=== PATIENT | male | born 1955 | race American Indian/Alaskan Native ===

== ENCOUNTER 2017-02-01 07:45 | Inpatient (IN) | payer OTHER ==
[2017-01-25 11:40] VITALS: BMI 36.5
--- NOTE | 2017-02-05 12:26 | CP.PCM.HP ---
History of Present Illness - History of Present Illness History of Present Illness: Orthopedic note Dr. Blackman 61M complains of left hip pain due to arthritis, failed conservative mgmt and elected for THR. PMH: HTN, DM, chol PSH: R TKR, R shoulder replacement NKDA lives with daughter in 3 family home with stairs Present on Admission - Present on Admission Any Indicators Present on Admission: No Review of Systems - Review of Systems All systems: reviewed and no additional remarkable complaints except - Constitutional Additional comments: no recent illness - Hematologic/Lymphatic Hematologic: absent: As Per HPI, Easy Bleeding, Easy Bruising, Lymphadenopathy, Other (no history of bleeding or blood clots) Past Patient History - Past Medical History & Family History Past Medical History?: Yes Past Family History: Reviewed and not pertinent - Past Social History Smoking Status: Former Smoker - CARDIAC Hx Cardiac Disorders: Yes Hx Hypercholesterolemia: Yes Hx Hypertension: Yes Hx Peripheral Edema: Yes - PULMONARY Hx Respiratory Disorders: No - NEUROLOGICAL Hx Neurological Disorder: No - HEENT Hx HEENT Problems: No - RENAL Hx Chronic Kidney Disease: No - ENDOCRINE/METABOLIC Hx Endocrine Disorders: Yes Hx Diabetes Mellitus Type 2: Yes - HEMATOLOGICAL/ONCOLOGICAL Hx Blood Disorders: No - INTEGUMENTARY Hx Dermatological Problems: No - MUSCULOSKELETAL/RHEUMATOLOGICAL Hx Musculoskeletal Disorders: Yes Hx Arthritis: Yes Hx Falls: No Hx Osteoarthritis: Yes - GASTROINTESTINAL Hx Gastrointestinal Disorders: No - GENITOURINARY/GYNECOLOGICAL Hx Genitourinary Disorders: No - PSYCHIATRIC Hx Psychophysiologic Disorder: No Hx Substance Use: No - SURGICAL HISTORY Hx Surgeries: Yes Hx Arthroscopy: Yes (ROTATOR CUFF REPAIR RIGHT SHOULDER ) Hx Joint Replacement: Yes (RIGHT SHOULDER) - ANESTHESIA Hx Anesthesia: Yes Hx Anesthesia Reactions: No Hx Malignant Hyperthermia: No Has any member of the family had a problem w/ anesthesia?: No Meds Allergies/Adverse Reactions: Allergies Allergy/AdvReac Type Severity Reaction Status Date / Time No Known Allergies Allergy Verified 09/06/15 10:28 Physical Exam - Constitutional Appears: Well, No Acute Distress - Expanded Lower Extremities Exam Left Knee exam: full ROM, normal inspection Ankle exam: FULL ROM, NORMAL INSPECTION Neuro vacular tendon exam: no vascular compromise - Neurological Exam Neurological exam: Alert, Oriented x3 - Psychiatric Exam Psychiatric exam: Normal Affect, Normal Mood - Skin Skin Exam: Dry, Intact, Normal Color, Warm Results - Vital Signs Recent Vital Signs: Last Vital Signs Temp 98.9 F 02/05/17 10:47 Pulse 84 02/05/17 10:47 Resp 18 02/05/17 10:47 BP 132/76 02/05/17 10:47 Pulse Ox 97 02/05/17 10:47 - Labs Labs: Laboratory Results - last 24 hr 02/05/17 02/05/17 10:55 11:32 POC Glucose (mg/dL) 182 H Blood Type A POSITIVE Antibody Screen Negative - Impressions Impression: ccession No. : [id number] Patient Name / ID : CESAR Abebe / [id number] Exam Date : 01/25/2017 12:15:44 ( Approved ) Study Comment : Sex / Age : M / 61Y Creator : Nicole Moreno MD Dictator : Nicole Moreno MD Record Producer : Knit Goods Washer : Nicole Moreno MD Approver2 : Report Date : 01/25/2017 13:06:15 My Comment : HISTORY: PREOP O.R . 02/01 COMPARISON: Chest x-ray performed 09/06/15 TECHNIQUE: Chest PA and lateral FINDINGS: Examination limited by habitus and hypoinflation. Lateral view obscured by patient's arm which was not elevated. LUNGS: No focal consolidation. Please note that chest x-ray has limited sensitivity for the detection of pulmonary masses. PLEURA: No significant pleural effusion identified. No definite pneumothorax . CARDIOVASCULAR: Heart size appears within normal limits. OSSEOUS STRUCTURES: Partially imaged right shoulder arthroplasty. VISUALIZED UPPER ABDOMEN: Unremarkable. OTHER FINDINGS: None. IMPRESSION: No focal consolidation, significant pleural effusion, or definite pneumothorax identified. Assessment & Plan (1) Unilateral primary osteoarthritis, left hip Assessment and Plan: NPO for OR Status: Acute (2) Hypertension Assessment and Plan: continue home meds med consult Status: Chronic (3) Diabetes type 2, controlled Status: Chronic (4) Hypercholesteremia Status: Chronic Decision To Admit - Pt Status Changed To: Hospital Disposition Of: Inpatient - Admit Certification Admit to Inpatient:: After my assessment, the patient will require hospitalization for at least two midnights. This is because of the severity of symptoms shown, intensity of services needed, and/or the medical risk in this patient being treated as an outpatient. - InPatient: Physician Admission Certification:: After my assessment, the patient will require hospitalization for at least two midnights. This is because of the severity of symptoms shown, intensity of services needed, and/or the medical risk in this patient being treated as an outpatient. - . Bed Request Type: Regular
[2017-02-05] MEDS ORDERED: Bacitracin 150,000 UNIT in Sodium Chloride 0.9% Irrig 3,000 ML IR SCH ×2 (12:30→12:45)
[2017-02-05] MEDS ORDERED: Morphine 1 mg/ml preservative-free Inj(Duramorph) ONE (13:03)
[2017-02-05] MEDS ORDERED: Propofol 10 mg/ml Inj (20 ML) ONE (13:11)
[2017-02-05] MEDS ORDERED: Midazolam 2 MG/2 ML VIAL ONE (13:11)
[2017-02-05] MEDS ORDERED: ceFAZolin 1 gm FROZEN Premix 1 GM/50 ML ML IVPB ONE ×2 (13:30→13:31)
[2017-02-05] MEDS ORDERED: Lactated Ringer's 1,000 ML IV ONE ×3 (13:40→17:30)
[2017-02-05] MEDS ORDERED: Absorbable Gelatin Sponge Size 100 ONE (17:17)
[2017-02-05] MEDS ORDERED: Thrombin Topical 20,000 Intl Units Spray Kit TOP ONE (17:17)
[2017-02-05] MEDS ORDERED: HYDROmorphone 0.5 mg/0.5 ml ISec IVP PRN (18:25)
[2017-02-05] MEDS ORDERED: Oxycodone/Acetaminophen 5/325 mg Tab PO PRN (18:30)
--- NOTE | 2017-02-05 18:40 | PCM.SURG1 ---
Surgeon's Initial Post Op Note - Surgeon's Notes Surgeon: Sigrid Blackman MD Manager Strategic: Juana Gay PA-C, CRNA Type of Anesthesia: Spinal Anesthesia Administered By: Pricila MACDONALD Pre-Operative Diagnosis: Left hip DJD Operative Findings: same Post-Operative Diagnosis: same Operation Performed: 1. Left total hip replacement, anterior. 2. femoral neck osteotomy. 3. release iliopsoas tendon. 4. autograft bone graft to acetabulum Specimen/Specimens Removed: femoral head Estimated Blood Loss: EBL {In ML}: 700 Blood Products Given: N/A Drains Used: No Drains Post-Op Condition: Fair Date of Surgery/Procedure: 02/05/17 Time of Surgery/Procedure: 18:43
[2017-02-05] MEDS ORDERED: Sodium Chloride 0.9% 1,000 ML IV ONE (19:00)
--- NOTE | 2017-02-05 20:09 | CP.PCM.CON ---
History of Present Illness - History of Present Illness History of Present Illness: 61 year old male with past medical history of hypertension, osteoarthritis, diabetes, hyperlipidemia presents status post left total hip replacement. Patient is still currently in the PACU and is still lethargic post surgery. He states his pain is currently a 7/10. He also complains that his mouth is dry. Patient denies shortness of breath or chest pain. Past Medical History: Hypertension, Diabetes, hyperlipidemia Past Surgical History: Right Total Knee Repair, Right shoulder replacement Allergies: NKDA Social: lives with daughter in 3 family home with stairs Additional history limited secondary to patient's status post left total hip replacement. Past Patient History - Past Medical History & Family History Past Medical History?: Yes Past Family History: Reviewed and not pertinent - Past Social History Smoking Status: Former Smoker - CARDIAC Hx Cardiac Disorders: Yes Hx Hypercholesterolemia: Yes Hx Hypertension: Yes Hx Peripheral Edema: Yes - PULMONARY Hx Respiratory Disorders: No - NEUROLOGICAL Hx Neurological Disorder: No - HEENT Hx HEENT Problems: No - RENAL Hx Chronic Kidney Disease: No - ENDOCRINE/METABOLIC Hx Endocrine Disorders: Yes Hx Diabetes Mellitus Type 2: Yes - HEMATOLOGICAL/ONCOLOGICAL Hx Blood Disorders: No - INTEGUMENTARY Hx Dermatological Problems: No - MUSCULOSKELETAL/RHEUMATOLOGICAL Hx Musculoskeletal Disorders: Yes Hx Arthritis: Yes Hx Falls: No Hx Osteoarthritis: Yes - GASTROINTESTINAL Hx Gastrointestinal Disorders: No - GENITOURINARY/GYNECOLOGICAL Hx Genitourinary Disorders: No - PSYCHIATRIC Hx Psychophysiologic Disorder: No Hx Substance Use: No - SURGICAL HISTORY Hx Surgeries: Yes Hx Arthroscopy: Yes (ROTATOR CUFF REPAIR RIGHT SHOULDER ) Hx Joint Replacement: Yes (RIGHT SHOULDER) - ANESTHESIA Hx Anesthesia: Yes Hx Anesthesia Reactions: No Hx Malignant Hyperthermia: No Has any member of the family had a problem w/ anesthesia?: No Meds Allergies/Adverse Reactions: Allergies Allergy/AdvReac Type Severity Reaction Status Date / Time No Known Allergies Allergy Verified 09/06/15 10:28 - Medications Medications: Current Medications Aspirin (Ecotrin) 81 mg PO Q12H [facility] Docusate Sodium (Colace) 100 mg PO BID [facility] Enalapril Maleate (Vasotec) 10 mg PO DAILY [facility] Hydromorphone HCl (Dilaudid) 0.5 mg IVP Q5M PRN PRN Reason: Pain, moderate (4-7) Stop: 02/05/17 20:26 Hydromorphone HCl (Dilaudid) 1 mg IVP Q4H PRN PRN Reason: Pain, severe (8-10) Cefazolin Sodium/Dextrose (Ancef Iv 2 Gm Duplex) 2 gm in 100 mls @ 100 mls/hr IVPB Q8H [facility] Stop: 02/06/17 06:59 Sodium Chloride (Sodium Chloride 0.9%) 1,000 mls @ 100 mls/hr IV .Q10H [facility] Stop: 02/06/17 14:29 Insulin Aspart (Novolog Mix 70/30 (70/30 Units/Ml)) 10 units SC TID [facility] Insulin Glargine (Lantus) 40 unit SC HS [facility] Metformin HCl (Glucophage) 850 mg PO BID [facility] Metoclopramide HCl (Reglan) 10 mg IVP ONCE PRN PRN Reason: Nausea/Vomiting Stop: 02/05/17 20:26 Metoprolol Succinate (Toprol Xl) 25 mg PO DAILY [facility] Ondansetron HCl (Zofran Inj) 4 mg IVP ONCE PRN PRN Reason: Nausea/Vomiting Stop: 02/05/17 20:26 Last Admin: 02/05/17 19:15 Dose: 4 mg Oxycodone/Acetaminophen (Percocet 5/325 Mg Tab) 2 tab PO Q4H PRN PRN Reason: Pain, moderate (4-7) Stop: 02/08/17 18:31 Rosuvastatin Calcium (Crestor) 5 mg PO HS [facility] Results - Vital Signs Recent Vital Signs: Last Vital Signs Temp 97.1 F L 02/05/17 18:19 Pulse 109 H 02/05/17 19:45 Resp 14 02/05/17 19:45 BP 148/80 02/05/17 19:45 Pulse Ox 100 02/05/17 19:45 - Labs Result Diagrams: 02/05/17 18:53 Labs: Laboratory Results - last 24 hr 02/05/17 02/05/17 02/05/17 10:55 11:32 18:53 Hgb 12.1 D Hct 37.0 POC Glucose (mg/dL) 182 H Blood Type A POSITIVE Antibody Screen Negative
--- NOTE | 2017-02-05 20:11 | CP.PCM.PN ---
<Dunia Rao - Last Filed: 02/05/17 22:43> Subjective - Date & Time of Evaluation Date of Evaluation: 02/05/17 Time of Evaluation: 20:11 - Subjective Subjective: 61 year old male with past medical history of hypertension, osteoarthritis, diabetes, hyperlipidemia presents status post left total hip replacement. Patient is still currently in the PACU and is still lethargic post surgery. He states his pain is currently a 7/10. He also complains that his mouth is dry. Patient denies shortness of breath or chest pain. Past Medical History: Hypertension, Diabetes, hyperlipidemia Past Surgical History: Right Total Knee Repair, Right shoulder replacement Allergies: NKDA Social: lives with daughter in 3 family home with stairs Additional history limited secondary to patient's status post left total hip replacement. Objective - Vital Signs/Intake and Output Vital Signs (last 24 hours): Temp Pulse Resp BP Pulse Ox 97.1 F L 109 H 14 148/80 100 02/05/17 18:19 02/05/17 19:45 02/05/17 19:45 02/05/17 19:45 02/05/17 19:45 Intake and Output: 02/05/17 02/06/17 18:59 06:59 Intake Total 100 Balance 100 - Medications Medications: Current Medications Aspirin (Ecotrin) 81 mg PO Q12H [facility] Docusate Sodium (Colace) 100 mg PO BID [facility] Enalapril Maleate (Vasotec) 10 mg PO DAILY [facility] Hydromorphone HCl (Dilaudid) 0.5 mg IVP Q5M PRN PRN Reason: Pain, moderate (4-7) Stop: 02/05/17 20:26 Hydromorphone HCl (Dilaudid) 1 mg IVP Q4H PRN PRN Reason: Pain, severe (8-10) Cefazolin Sodium/Dextrose (Ancef Iv 2 Gm Duplex) 2 gm in 100 mls @ 100 mls/hr IVPB Q8H [facility] Stop: 02/06/17 06:59 Sodium Chloride (Sodium Chloride 0.9%) 1,000 mls @ 100 mls/hr IV .Q10H [facility] Stop: 02/06/17 14:29 Insulin Aspart (Novolog Mix 70/30 (70/30 Units/Ml)) 10 units SC TID [facility] Insulin Glargine (Lantus) 40 unit SC HS [facility] Metformin HCl (Glucophage) 850 mg PO BID [facility] Metoclopramide HCl (Reglan) 10 mg IVP ONCE PRN PRN Reason: Nausea/Vomiting Stop: 02/05/17 20:26 Metoprolol Succinate (Toprol Xl) 25 mg PO DAILY [facility] Ondansetron HCl (Zofran Inj) 4 mg IVP ONCE PRN PRN Reason: Nausea/Vomiting Stop: 02/05/17 20:26 Last Admin: 02/05/17 19:15 Dose: 4 mg Oxycodone/Acetaminophen (Percocet 5/325 Mg Tab) 2 tab PO Q4H PRN PRN Reason: Pain, moderate (4-7) Stop: 02/08/17 18:31 Rosuvastatin Calcium (Crestor) 5 mg PO HS [facility] - Labs Labs: 02/05/17 18:53 - Constitutional Appears: No Acute Distress, Other (lethargic s/p surgery ) - Head Exam Head Exam: ATRAUMATIC, NORMAL INSPECTION, NORMOCEPHALIC - Eye Exam Eye Exam: EOMI, Normal appearance, PERRL - ENT Exam ENT Exam: Mucous Membranes Dry - Respiratory Exam Respiratory Exam: Clear to Ausculation Bilateral, NORMAL BREATHING PATTERN - Cardiovascular Exam Cardiovascular Exam: Tachycardia, REGULAR RHYTHM, +S1, +S2 - GI/Abdominal Exam GI & Abdominal Exam: Soft, Hypoactive Bowel Sounds. absent: Tenderness - Extremities Exam Extremities Exam: absent: Pedal Edema Additional comments: s/p right total hip repair - Neurological Exam Neurological Exam: Alert, Awake, Oriented x3 - Skin Skin Exam: Normal Color, Warm Assessment and Plan - Assessment and Plan (Free Text) Assessment: 1.) s/p Total hip replacement - Cefazolin - Dilaudid 1mg PRN - Percocet 2 tab q4 PRN - Colace 100mg PO BID - N/S @ 100 cc/hr - [place]: Dr. Horta --> help appreciated 2.)Sinus Tachycardic s/p surgery - n/s bolus 500ml - EKG - sinus taachy - Admitted to tele 3.) Acute Anemia - 700ml blood loss - H/H s/p surgery: 11.8/36.9 - Monitor H/H 4.) History of hypertension - Metoprolol succinate 25mg PO daily - Enalapril 10mg PO daily 5.) History Diabetes - Metformin 850mg PO BID - Insulin Glargine 40 unit SC HS 6.) History of Hyperlipidemia - Rosuvastatin 5mg PO HS Case discussed with Dr. Anaya Rao PGY-1 <Ryan Julien - Last Filed: 02/06/17 06:38> Subjective - Date & Time of Evaluation Date of Evaluation: 02/06/17 (I have seen and examined the patient. I agree with the findings and plan of care as documented by Dr. Rao. Patient s/p right hip replacement. History of diabetes and now with some sinus tachycardia. Patient had blood loss during surgery with a noticeable drop in hemoglobin. Hydrate with IVF. Monitor CBC. Monitor on tele. Maintain adequate blood sugar control to optimize healing and recovery. Monitor for acute changes.) Time of Evaluation: 06:35 Objective - Vital Signs/Intake and Output Vital Signs (last 24 hours): Temp Pulse Resp BP Pulse Ox 98.5 F 135 H 20 151/92 H 99 02/05/17 23:50 02/05/17 23:50 02/05/17 23:50 02/05/17 23:50 02/05/17 23:50 Intake and Output: 02/05/17 02/06/17 18:59 06:59 Intake Total 100 Output Total 100 Balance 100 -100 - Medications Medications: Current Medications Aspirin (Ecotrin) 81 mg PO Q12H [facility] Docusate Sodium (Colace) 100 mg PO BID [facility] Enalapril Maleate (Vasotec) 10 mg PO DAILY [facility] Hydromorphone HCl (Dilaudid) 1 mg IVP Q4H PRN PRN Reason: Pain, severe (8-10) Last Admin: 02/06/17 00:45 Dose: 1 mg Cefazolin Sodium/Dextrose (Ancef Iv 2 Gm Duplex) 2 gm in 100 mls @ 100 mls/hr IVPB Q8H [facility] Stop: 02/06/17 06:59 Last Admin: 02/05/17 22:13 Dose: 100 mls Sodium Chloride (Sodium Chloride 0.9%) 1,000 mls @ 100 mls/hr IV .Q10H [facility] Stop: 02/06/17 14:29 Last Admin: 02/05/17 22:47 Dose: 100 mls/hr Sodium Chloride (Sodium Chloride 0.9%) 500 mls @ 1,000 mls/hr IV .Q30M [facility] Stop: 02/06/17 06:56 Insulin Aspart (Novolog Mix 70/30 (70/30 Units/Ml)) 10 units SC TID [facility] Insulin Glargine (Lantus) 40 unit SC HS [facility] Metformin HCl (Glucophage) 850 mg PO BID [facility] Metoprolol Succinate (Toprol Xl) 25 mg PO DAILY [facility] Ondansetron HCl (Zofran Inj) 4 mg IVP Q6 PRN PRN Reason: Nausea Oxycodone/Acetaminophen (Percocet 5/325 Mg Tab) 2 tab PO Q4H PRN PRN Reason: Pain, moderate (4-7) Stop: 02/08/17 18:31 Rosuvastatin Calcium (Crestor) 5 mg PO HS [facility] Last Admin: 02/05/17 22:19 Dose: Not Given - Labs Labs: 02/05/17 21:20 Attending/Attestation - Attestation I have personally seen and examined this patient.: Yes I have fully participated in the care of the patient.: Yes I have reviewed all pertinent clinical information, including history, physical exam and plan: Yes
[2017-02-05] MEDS ORDERED: Sodium Chloride 0.9% 500 ML IV ONE (21:18)
[2017-02-05 21:30] LABS: HEMATOCRIT 36.9 % (35.0-51.0)
[2017-02-05] MEDS: ceFAZolin IV 2 gm in Dextrose 2 GM/100 ML BAG IVPB SCH (22:13)
[2017-02-05] MEDS: Sodium Chloride 0.9% 1,000 ML IV SCH (22:47)
[2017-02-06] MEDS: HYDROmorphone 1 mg/ml ISec IVP PRN ×3 (00:45→18:54)
[2017-02-06] MEDS ORDERED: Sodium Chloride 0.9% 500 ML IV ONE ×2 (01:56→06:27)
[2017-02-06] MEDS: ceFAZolin IV 2 gm in Dextrose 2 GM/100 ML BAG IVPB SCH (07:10)
[2017-02-06 07:23] LABS: HEMATOCRIT 33.9 % (35.0-51.0); MEAN CORPUSCULAR HEMOGLOBIN 27.2 pg (27.0-31.0); MEAN CORPUSCULAR HGB CONC 32.7 g/dL (33.0-37.0); MEAN PLATELET VOLUME 9.5 fL (7.2-11.7); RED CELL DISTRIBUTION WIDTH 14.9 % (11.5-14.5); WHITE BLOOD COUNT 13.3 K/uL (4.8-10.8)
[2017-02-06] MEDS: Sodium Chloride 0.9% 1,000 ML IV SCH (07:25)
[2017-02-06 08:01] LABS: MEAN CELL VOLUME 82.7 fL (80.0-94.0)
[2017-02-06 08:13] LABS: CHLORIDE 95 mmol/L (98-107)
[2017-02-06 08:14] LABS: POTASSIUM 5.2 mmol/L (3.6-5.2); SODIUM 131 mmol/L (132-148)
[2017-02-06 08:16] LABS: GFR AFRICAN-AMERICAN > 60
[2017-02-06 08:17] LABS: BLOOD UREA NITROGEN 15 mg/dL (9-20); CALCIUM 8.3 mg/dl (8.6-10.4); CARBON DIOXIDE 21 mmol/L (22-30); GLUCOSE,RANDOM 385 mg/dL (75-110); PHOSPHOROUS 4.9 mg/dL (2.5-4.5)
[2017-02-06 08:18] LABS: MAGNESIUM 1.5 mg/dL (1.6-2.3)
--- NOTE | 2017-02-06 09:16 | RAD ---
PROCEDURE: HISTORY: pt in PACU, s/p THR COMPARISON: None TECHNIQUE: AP view of the pelvis and slightly oblique left hip views obtained. Portable study FINDINGS: Patient status post total left hip panfilo arthroplasty. The acetabular and femoral stem components appear anatomically aligned. Left gluteal soft tissue postop changes and skin sutures are in place IMPRESSION: Status post recent left hip hemiarthroplasty
--- NOTE | 2017-02-06 09:42 | RAD ---
PROCEDURE: HISTORY: Status post total left hip replacement/ left hip panfilo arthroplasty COMPARISON: None TECHNIQUE: Total fluoroscopic time utilized during the procedure: 14.2 seconds. Total dose 3.53 mGy cm squared FINDINGS: Submitted images from the current procedure: 6 Please refer to the physician's notes performing the procedure. IMPRESSION: Less than 1 hour fluoroscopic time utilized during performance of the procedure
[2017-02-06] MEDS: (Novolog Mix 70/30) Insulin Aspart/Insulin Aspar 100 units/ml SC SCH ×3 (10:01→18:35)
--- NOTE | 2017-02-06 10:42 | CP.PCM.PN ---
<Maria G Parks - Last Filed: 02/06/17 13:07> Subjective - Date & Time of Evaluation Date of Evaluation: 02/06/17 Time of Evaluation: 07:00 - Subjective Subjective: Medicine note for Dr. Tripp Patient seen and examined at bedside. Patient resting comfortably in bed. Patient having SOB and pressure overnight per nursing. Patient still having pressure in his chest but says the SOB has improved. He says he feels congested in his chest but denies pain in his chest. Patient says he vomited last night but has otherwise been tolerating water and is wondering if he can have some jello. Patient says he is haveing 4/10 hip pain that is well controlled with pain meds. Patient says he feels like his right leg is swollen but denies calf pain. Patient has not had a BM since surgery and has not been out of bed. Patient says he is not using the incentive spirometer because no one gave him one. Denies fever, chills, diarrhea. Objective - Vital Signs/Intake and Output Vital Signs (last 24 hours): Temp Pulse Resp BP Pulse Ox 98.1 F 135 H 20 127/84 99 02/06/17 08:15 02/06/17 08:15 02/06/17 08:15 02/06/17 08:15 02/06/17 08:15 Intake and Output: 02/06/17 02/06/17 06:59 18:59 Output Total 100 Balance -100 - Medications Medications: Current Medications Aspirin (Ecotrin) 81 mg PO Q12H [facility] Docusate Sodium (Colace) 100 mg PO BID [facility] Enalapril Maleate (Vasotec) 10 mg PO DAILY [facility] Hydromorphone HCl (Dilaudid) 1 mg IVP Q4H PRN PRN Reason: Pain, severe (8-10) Last Admin: 02/06/17 00:45 Dose: 1 mg Sodium Chloride (Sodium Chloride 0.9%) 1,000 mls @ 100 mls/hr IV .Q10H [facility] Stop: 02/06/17 14:29 Last Admin: 02/06/17 07:25 Dose: 100 mls/hr Insulin Aspart (Novolog Mix 70/30 (70/30 Units/Ml)) 10 units SC TID [facility] Last Admin: 02/06/17 10:01 Dose: 10 units Insulin Glargine (Lantus) 40 unit SC HS [facility] Metformin HCl (Glucophage) 850 mg PO BID [facility] Metoprolol Succinate (Toprol Xl) 25 mg PO DAILY [facility] Ondansetron HCl (Zofran Inj) 4 mg IVP Q6 PRN PRN Reason: Nausea Last Admin: 02/06/17 08:13 Dose: 4 mg Oxycodone/Acetaminophen (Percocet 5/325 Mg Tab) 2 tab PO Q4H PRN PRN Reason: Pain, moderate (4-7) Stop: 02/08/17 18:31 Rosuvastatin Calcium (Crestor) 5 mg PO HS [facility] Last Admin: 02/05/17 22:19 Dose: Not Given - Labs Labs: 02/06/17 07:05 02/06/17 07:05 - Constitutional Appears: Non-toxic, No Acute Distress - Head Exam Head Exam: ATRAUMATIC, NORMAL INSPECTION - Eye Exam Eye Exam: EOMI, Normal appearance - ENT Exam ENT Exam: Mucous Membranes Moist - Respiratory Exam Respiratory Exam: Clear to Ausculation Bilateral, NORMAL BREATHING PATTERN. absent: Accessory Muscle Use, Rales, Rhonchi, Wheezes, Respiratory Distress - Cardiovascular Exam Cardiovascular Exam: Tachycardia, +S1, +S2. absent: Murmur - GI/Abdominal Exam GI & Abdominal Exam: Distended, Soft, Hypoactive Bowel Sounds. absent: Guarding , Tenderness - Extremities Exam Extremities Exam: absent: Calf Tenderness - Neurological Exam Neurological Exam: Alert, Awake - Psychiatric Exam Psychiatric exam: Normal Affect, Normal Mood - Skin Skin Exam: Dry, Intact, Normal Color, Warm. absent: Diaphoretic Assessment and Plan - Assessment and Plan (Free Text) Plan: s/p Total hip replacement POD#1 * Cefazolin * Dilaudid 1mg PRN * Percocet 2 tab q4 PRN * Colace 100mg PO BID * N/S @ 100 cc/hr * Encouraged incentive spirometer * [place]: Dr. Mychal yuan appreciated Chest Pain/Pressure * started POD#0/1 * f/u REINALDO and EKG * Consider D-dimer or CT chest with history of feeling swelling sensation of Right LE LE swelling * f/u venous dupplex b/l LEs Sinus Tachycardia * n/s bolus 500ml given 02/05 * EKG - sinus tachy * On Telemetry Acute Anemia * 700ml blood loss during surgery * H/H s/p surgery: 11.8/36.9 * POD#1 (02/06): 11.1/33.9 * Monitor H/H History of hypertension * Metoprolol succinate 25mg PO daily * Enalapril 10mg PO daily History Diabetes * Metformin 850mg PO BID * Insulin Glargine 40 unit SC HS History of Hyperlipidemia * Rosuvastatin 5mg PO HS Prophylaxis * c/i to SCDs - LE swelling * Heparin 5000 U SC Q8 * Pepcid 20 mg BID Case discussed with Dr. Josee Parks, PGY1 <Leti Tripp - Last Filed: 02/07/17 13:53> Objective - Vital Signs/Intake and Output Vital Signs (last 24 hours): Temp Pulse Resp BP Pulse Ox 99.9 F H 125 H 16 133/72 100 02/07/17 12:54 02/07/17 12:54 02/07/17 12:54 02/07/17 12:54 02/07/17 07:20 Intake and Output: 02/07/17 02/07/17 06:59 18:59 Intake Total 500 800 Output Total 300 700 Balance 200 100 - Medications Medications: Current Medications Aspirin (Ecotrin) 81 mg PO Q12H [facility] Last Admin: 02/07/17 10:17 Dose: 81 mg Docusate Sodium (Colace) 100 mg PO BID [facility] Last Admin: 02/07/17 10:17 Dose: 100 mg Enalapril Maleate (Vasotec) 10 mg PO DAILY [facility] Last Admin: 02/07/17 10:19 Dose: 10 mg Famotidine (Pepcid) 20 mg PO BID [facility] Last Admin: 02/07/17 10:17 Dose: 20 mg Heparin Sodium (Porcine) (Heparin) 5,000 units SC Q8 [facility] Last Admin: 02/07/17 05:50 Dose: 5,000 units Hydromorphone HCl (Dilaudid) 1 mg IVP Q4H PRN PRN Reason: Pain, severe (8-10) Last Admin: 02/07/17 10:17 Dose: 1 mg Insulin Aspart (Novolog Mix 70/30 (70/30 Units/Ml)) 10 units SC TID [facility] Last Admin: 02/07/17 10:18 Dose: 10 units Insulin Glargine (Lantus) [address] [facility] Last Admin: 02/06/17 22:00 Dose: Not Given Metformin HCl (Glucophage) 850 mg PO BID [facility] Last Admin: 02/07/17 10:17 Dose: 850 mg Metoprolol Succinate (Toprol Xl) 25 mg PO DAILY [facility] Last Admin: 02/07/17 10:17 Dose: 25 mg Ondansetron HCl (Zofran Inj) 4 mg IVP Q6 PRN PRN Reason: Nausea Last Admin: 02/06/17 08:13 Dose: 4 mg Oxycodone/Acetaminophen (Percocet 5/325 Mg Tab) 2 tab PO Q4H PRN PRN Reason: Pain, moderate (4-7) Stop: 02/08/17 18:31 Rosuvastatin Calcium (Crestor) 5 mg PO HS [facility] Last Admin: 02/06/17 21:38 Dose: 5 mg - Labs Labs: 02/07/17 07:06 02/07/17 07:06 APTT 28 SECONDS (21-34) 02/06/17 14:27 Attending/Attestation - Attestation I have personally seen and examined this patient.: Yes I have fully participated in the care of the patient.: Yes I have reviewed all pertinent clinical information, including history, physical exam and plan: Yes Notes (Text): 02/07/17 13:51 This is a 61years old male with history of DM,HTN,arthritis and HLD was seen after left hip replacement. Patient was seen and examined,no complain.He was tachycardic Monitor HR,hydrate, pain meds and continue his home meds Discussed with resident.Agree withe resident's documentation and plan
[2017-02-06] MEDS ORDERED: Pneumococcal 23-Valent Vaccine IM ONE (10:59)
[2017-02-06] MEDS: Metoprolol Succinate 25 mg XL Tab PO SCH (11:18)
--- NOTE | 2017-02-06 11:52 | CP.PCM.PN ---
Subjective - Date & Time of Evaluation Date of Evaluation: 02/06/17 Time of Evaluation: 11:00 - Subjective Subjective: Patient states that he has some pain in his hip, but that he is comfortable. He denies any CP/SOb/palp/diizziness/numbness/tingling at this time. He has been nauseated off and on, at this time he feels ok. Objective - Vital Signs/Intake and Output Vital Signs (last 24 hours): Temp Pulse Resp BP Pulse Ox 98.1 F 135 H 20 121/80 99 02/06/17 08:15 02/06/17 08:15 02/06/17 08:15 02/06/17 11:19 02/06/17 08:15 Intake and Output: 02/06/17 02/06/17 06:59 18:59 Output Total 100 Balance -100 - Medications Medications: Current Medications Aspirin (Ecotrin) 81 mg PO Q12H [facility] Docusate Sodium (Colace) 100 mg PO BID [facility] Last Admin: 02/06/17 11:19 Dose: 100 mg Enalapril Maleate (Vasotec) 10 mg PO DAILY [facility] Last Admin: 02/06/17 11:19 Dose: 10 mg Hydromorphone HCl (Dilaudid) 1 mg IVP Q4H PRN PRN Reason: Pain, severe (8-10) Last Admin: 02/06/17 11:19 Dose: 1 mg Sodium Chloride (Sodium Chloride 0.9%) 1,000 mls @ 100 mls/hr IV .Q10H [facility] Stop: 02/06/17 14:29 Last Admin: 02/06/17 07:25 Dose: 100 mls/hr Insulin Aspart (Novolog Mix 70/30 (70/30 Units/Ml)) 10 units SC TID [facility] Last Admin: 02/06/17 10:01 Dose: 10 units Insulin Glargine (Lantus) 40 unit SC HS [facility] Metformin HCl (Glucophage) 850 mg PO BID [facility] Metoprolol Succinate (Toprol Xl) 25 mg PO DAILY [facility] Last Admin: 02/06/17 11:18 Dose: 25 mg Ondansetron HCl (Zofran Inj) 4 mg IVP Q6 PRN PRN Reason: Nausea Last Admin: 02/06/17 08:13 Dose: 4 mg Oxycodone/Acetaminophen (Percocet 5/325 Mg Tab) 2 tab PO Q4H PRN PRN Reason: Pain, moderate (4-7) Stop: 02/08/17 18:31 Pneumococcal Polyvalent Vaccine (Pneumovax 23 Vaccine) 0.5 ml IM .ONCE ONE Stop: 02/07/17 11:00 Rosuvastatin Calcium (Crestor) 5 mg PO HS [facility] Last Admin: 02/05/17 22:19 Dose: Not Given - Labs Labs: 02/06/17 07:05 02/06/17 07:05 - Extremities Exam Additional comments: LLE: +ROM ankle/toes, sensation intact +DP/PT pulses calves soft left calf tender (could be due to positioning device) neg homans Left thigh swollen as expected, tender min drainage on dressing Assessment and Plan (1) Unilateral primary osteoarthritis, left hip Assessment & Plan: POD#1 s/p left THR patient with tachycardia post op patient did not receive beta block yet today as refused meds due to nausea, now agrees to take meds EKG noted cardiac enzymes noted, patient had THR expect CKMB to be elevated placed on telemetry pt with sig blood loss intraop and drop in hgb is expected, and may be contributing to tachycardia, along with pain (patient not taking much pain medication) cardiology consulted Dr. Saldaña d/c planning aspirin 81mg PO BID for VTE proph as per Dr. Blackman d/w Dr. Blackman, agrees with above venous dopplers ordered, neg for DVT bilaterally Status: Acute (2) Acute blood loss anemia Assessment & Plan: monitor labs in am BP stable, tachycardic,f/u labs and consult Status: Acute (3) Hypertension Status: Chronic (4) Diabetes type 2, controlled Status: Chronic (5) Hypercholesteremia Status: Chronic
[2017-02-06] MEDS: (Lantus) Insulin Glargine, Recombinant SC SCH (22:00)
[2017-02-07] MEDS: HYDROmorphone 1 mg/ml ISec IVP PRN ×3 (01:05→20:33)
[2017-02-07] MEDS ORDERED: Sodium Chloride 0.9% 1,000 ML IV SCH (01:45)
[2017-02-07 07:18] LABS: HEMATOCRIT 24.3 % (35.0-51.0); MEAN CELL VOLUME 81.7 fL (80.0-94.0); MEAN CORPUSCULAR HEMOGLOBIN 27.2 pg (27.0-31.0); MEAN CORPUSCULAR HGB CONC 33.3 g/dL (33.0-37.0); RED CELL DISTRIBUTION WIDTH 14.8 % (11.5-14.5); WHITE BLOOD COUNT 11.4 K/uL (4.8-10.8)
[2017-02-07 08:10] LABS: CHLORIDE 93 mmol/L (98-107); SODIUM 128 mmol/L (132-148)
[2017-02-07 08:11] LABS: POTASSIUM 3.6 mmol/L (3.6-5.2)
[2017-02-07 08:13] LABS: BLOOD UREA NITROGEN 12 mg/dL (9-20); CARBON DIOXIDE 28 mmol/L (22-30); GFR AFRICAN-AMERICAN > 60
[2017-02-07 08:14] LABS: CALCIUM 8.2 mg/dl (8.6-10.4); GLUCOSE,RANDOM 188 mg/dL (75-110)
[2017-02-07] MEDS: Metoprolol Succinate 25 mg XL Tab PO SCH (10:17)
[2017-02-07] MEDS: (Novolog Mix 70/30) Insulin Aspart/Insulin Aspar 100 units/ml SC SCH ×3 (10:18→18:00)
[2017-02-07] MEDS ORDERED: Influenza Vaccine 60 mcg/0.5 mL SYR (4YR UP) IM ONE (10:59)
[2017-02-07] MEDS ORDERED: Pneumococcal 23-Valent Vaccine IM ONE (10:59)
--- NOTE | 2017-02-07 11:14 | CP.PCM.PN ---
<Maria G Parks - Last Filed: 02/07/17 13:53> Subjective - Date & Time of Evaluation Date of Evaluation: 02/07/17 Time of Evaluation: 11:10 - Subjective Subjective: Medicine note for Dr. Tripp Patient seen and examined at bedside. Pateint resting comfortably in bed with no new complaints at this time. Patient says he is having hip pain and palpitations but otherwise is doing much better today than he felt yesterday. Patient is passing flatus but has not had a BM since surgery. He is tolerating his diet, however, he feels nauseous when he takes his PO meds. Patient denies fever, chills, chest pain, SOB, vomiting, calf pain, and leg swelling. Objective - Vital Signs/Intake and Output Vital Signs (last 24 hours): Temp Pulse Resp BP Pulse Ox 98.5 F 115 H 20 120/85 100 02/07/17 07:20 02/07/17 07:20 02/07/17 07:20 02/07/17 10:19 02/07/17 07:20 Intake and Output: 02/07/17 02/07/17 06:59 18:59 Intake Total 500 800 Output Total 300 700 Balance 200 100 - Medications Medications: Current Medications Aspirin (Ecotrin) 81 mg PO Q12H [facility] Last Admin: 02/07/17 10:17 Dose: 81 mg Docusate Sodium (Colace) 100 mg PO BID [facility] Last Admin: 02/07/17 10:17 Dose: 100 mg Enalapril Maleate (Vasotec) 10 mg PO DAILY [facility] Last Admin: 02/07/17 10:19 Dose: 10 mg Famotidine (Pepcid) 20 mg PO BID [facility] Last Admin: 02/07/17 10:17 Dose: 20 mg Heparin Sodium (Porcine) (Heparin) 5,000 units SC Q8 [facility] Last Admin: 02/07/17 05:50 Dose: 5,000 units Hydromorphone HCl (Dilaudid) 1 mg IVP Q4H PRN PRN Reason: Pain, severe (8-10) Last Admin: 02/07/17 10:17 Dose: 1 mg Insulin Aspart (Novolog Mix 70/30 (70/30 Units/Ml)) 10 units SC TID [facility] Last Admin: 02/07/17 10:18 Dose: 10 units Insulin Glargine (Lantus) 40 unit SC [facility] Last Admin: 02/06/17 22:00 Dose: Not Given Metformin HCl (Glucophage) 850 mg PO BID [facility] Last Admin: 02/07/17 10:17 Dose: 850 mg Metoprolol Succinate (Toprol Xl) 25 mg PO DAILY [facility] Last Admin: 02/07/17 10:17 Dose: 25 mg Ondansetron HCl (Zofran Inj) 4 mg IVP Q6 PRN PRN Reason: Nausea Last Admin: 02/06/17 08:13 Dose: 4 mg Oxycodone/Acetaminophen (Percocet 5/325 Mg Tab) 2 tab PO Q4H PRN PRN Reason: Pain, moderate (4-7) Stop: 02/08/17 18:31 Rosuvastatin Calcium (Crestor) 5 mg PO [facility] Last Admin: 02/06/17 21:38 Dose: 5 mg - Labs Labs: 02/07/17 07:06 02/07/17 07:06 APTT 28 SECONDS (21-34) 02/06/17 14:27 - Constitutional Appears: Non-toxic, No Acute Distress - Head Exam Head Exam: NORMAL INSPECTION - Eye Exam Eye Exam: EOMI, Normal appearance - ENT Exam ENT Exam: Mucous Membranes Moist - Respiratory Exam Respiratory Exam: Clear to Ausculation Bilateral, NORMAL BREATHING PATTERN. absent: Accessory Muscle Use, Rales, Rhonchi, Wheezes, Respiratory Distress - Cardiovascular Exam Cardiovascular Exam: Tachycardia, +S1, +S2. absent: Murmur - GI/Abdominal Exam GI & Abdominal Exam: Distended, Soft, Hypoactive Bowel Sounds. absent: Guarding , Tenderness - Extremities Exam Extremities Exam: Normal Inspection. absent: Calf Tenderness, Pedal Edema Additional comments: bandage over incision of left hip c/d/i - Neurological Exam Neurological Exam: Alert, Awake - Psychiatric Exam Psychiatric exam: Normal Affect, Normal Mood - Skin Skin Exam: Dry, Intact, Normal Color, Warm Assessment and Plan - Assessment and Plan (Free Text) Plan: s/p Total hip replacement POD#1 * Cefazolin * Dilaudid 1mg PRN * Percocet 2 tab q4 PRN * Colace 100mg PO BID * N/S @ 100 cc/hr * Encouraged incentive spirometer * Gray: Dr. Bioardo - recs appreciated Chest Pain/Pressure * started POD#0/1 * REINALDO and EKG negative x3 LE swelling * venous dupplex b/l LEs negative Sinus Tachycardia * n/s bolus 500ml given 02/05 * EKG - sinus tachy * On Telemetry Acute Anemia * 700ml blood loss during surgery * H/H s/p surgery: 11.8/36.9 * POD#1 (02/06): 11.1/33.9 * POD#2 (02/07): 8.1/24.3 - transfused 1 U PRBCs, f/u H&H * Monitor H/H * Blood type: A+ * Antibody screen: negative History of hypertension * Metoprolol succinate 25mg PO daily * Enalapril 10mg PO daily History Diabetes * Metformin 850mg PO BID * Insulin Glargine 40 unit SC HS * Insulin Aspart 10 U SC TID * Monitor blood glucose ACHS and consider increasing insulin if uncontrolled History of Hyperlipidemia * Rosuvastatin 5mg PO HS Prophylaxis * c/i to SCDs - LE swelling * Heparin 5000 U SC Q8 * Pepcid 20 mg BID Case discussed with Dr. Josee Parks, PGY1 <Leti Tripp - Last Filed: 02/08/17 17:21> Objective - Vital Signs/Intake and Output Vital Signs (last 24 hours): Temp Pulse Resp BP Pulse Ox 99.9 F H 125 H 16 133/72 100 02/07/17 12:54 02/07/17 12:54 02/07/17 12:54 02/07/17 12:54 02/07/17 07:20 Intake and Output: 02/07/17 02/07/17 06:59 18:59 Intake Total 500 800 Output Total 300 700 Balance 200 100 - Medications Medications: Current Medications Aspirin (Ecotrin) 81 mg PO Q12H [facility] Last Admin: 02/07/17 10:17 Dose: 81 mg Docusate Sodium (Colace) 100 mg PO BID [facility] Last Admin: 02/07/17 10:17 Dose: 100 mg Enalapril Maleate (Vasotec) 10 mg PO DAILY [facility] Last Admin: 02/07/17 10:19 Dose: 10 mg Famotidine (Pepcid) 20 mg PO BID [facility] Last Admin: 02/07/17 10:17 Dose: 20 mg Heparin Sodium (Porcine) (Heparin) 5,000 units SC Q8 [facility] Last Admin: 02/07/17 05:50 Dose: 5,000 units Hydromorphone HCl (Dilaudid) 1 mg IVP Q4H PRN PRN Reason: Pain, severe (8-10) Last Admin: 02/07/17 10:17 Dose: 1 mg Insulin Aspart (Novolog Mix 70/30 (70/30 Units/Ml)) 10 units SC TID [facility] Last Admin: 02/07/17 10:18 Dose: 10 units Insulin Glargine (Lantus) 40 unit SC HS [facility] Last Admin: 02/06/17 22:00 Dose: Not Given Metformin HCl (Glucophage) 850 mg PO BID [facility] Last Admin: 02/07/17 10:17 Dose: 850 mg Metoprolol Succinate (Toprol Xl) 25 mg PO DAILY [facility] Last Admin: 02/07/17 10:17 Dose: 25 mg Ondansetron HCl (Zofran Inj) 4 mg IVP Q6 PRN PRN Reason: Nausea Last Admin: 02/06/17 08:13 Dose: 4 mg Oxycodone/Acetaminophen (Percocet 5/325 Mg Tab) 2 tab PO Q4H PRN PRN Reason: Pain, moderate (4-7) Stop: 02/08/17 18:31 Rosuvastatin Calcium (Crestor) 5 mg PO [facility] Last Admin: 02/06/17 21:38 Dose: 5 mg - Labs Labs: 02/07/17 07:06 02/07/17 07:06 APTT 28 SECONDS (21-34) 02/06/17 14:27 Attending/Attestation - Attestation I have personally seen and examined this patient.: Yes I have fully participated in the care of the patient.: Yes I have reviewed all pertinent clinical information, including history, physical exam and plan: Yes Notes (Text): This is a 61 years old male with history of DM,HTMN,arthritis and HLD s/p Left hip replacement seen and examined this morning.He is tachycardic.c/o weakness,no SOB,no chest pain.His Hb dropped from 11 to 8.1 1.Left hip replacement 2.Anemia and tachycardia post surgery blood loss.Transfuse one unit 3.Hyponatremia-follow sodium 4.DM 5.HTN continue current meds Discussed with the resident. Agree with the documentation of assessment and plan
--- NOTE | 2017-02-07 13:12 | CP.PCM.PN ---
Subjective - Date & Time of Evaluation Date of Evaluation: 02/07/17 Time of Evaluation: 13:06 - Subjective Subjective: Patient states pain in his hip is getting better. He was out of bed before and he wants to sit on edge of bed for lunch. Denies CP/SOB/dizziness. Still come sputum, but he says it is improving. Objective - Vital Signs/Intake and Output Vital Signs (last 24 hours): Temp Pulse Resp BP Pulse Ox 99.4 F 134 H 16 143/82 100 02/07/17 12:24 02/07/17 12:24 02/07/17 12:24 02/07/17 12:24 02/07/17 07:20 Intake and Output: 02/07/17 02/07/17 06:59 18:59 Intake Total 500 800 Output Total 300 700 Balance 200 100 - Medications Medications: Current Medications Aspirin (Ecotrin) 81 mg PO Q12H [facility] Last Admin: 02/07/17 10:17 Dose: 81 mg Docusate Sodium (Colace) 100 mg PO BID [facility] Last Admin: 02/07/17 10:17 Dose: 100 mg Enalapril Maleate (Vasotec) 10 mg PO DAILY [facility] Last Admin: 02/07/17 10:19 Dose: 10 mg Famotidine (Pepcid) 20 mg PO BID [facility] Last Admin: 02/07/17 10:17 Dose: 20 mg Heparin Sodium (Porcine) (Heparin) 5,000 units SC Q8 [facility] Last Admin: 02/07/17 05:50 Dose: 5,000 units Hydromorphone HCl (Dilaudid) 1 mg IVP Q4H PRN PRN Reason: Pain, severe (8-10) Last Admin: 02/07/17 10:17 Dose: 1 mg Insulin Aspart (Novolog Mix 70/30 (70/30 Units/Ml)) 10 units SC TID [facility] Last Admin: 02/07/17 10:18 Dose: 10 units Insulin Glargine (Lantus) 40 unit SC HS [facility] Last Admin: 02/06/17 22:00 Dose: Not Given Metformin HCl (Glucophage) 850 mg PO BID [facility] Last Admin: 02/07/17 10:17 Dose: 850 mg Metoprolol Succinate (Toprol Xl) 25 mg PO DAILY [facility] Last Admin: 02/07/17 10:17 Dose: 25 mg Ondansetron HCl (Zofran Inj) 4 mg IVP Q6 PRN PRN Reason: Nausea Last Admin: 02/06/17 08:13 Dose: 4 mg Oxycodone/Acetaminophen (Percocet 5/325 Mg Tab) 2 tab PO Q4H PRN PRN Reason: Pain, moderate (4-7) Stop: 02/08/17 18:31 Rosuvastatin Calcium (Crestor) 5 mg PO HS [facility] Last Admin: 02/06/17 21:38 Dose: 5 mg - Labs Labs: 02/07/17 07:06 02/07/17 07:06 APTT 28 SECONDS (21-34) 02/06/17 14:27 - Extremities Exam Additional comments: Left hip: +ROM akle/toes, sensation intact +DP/PT pulses, calves soft min tender neg homans, Left thigh swollen, does not appear more swollen than yesterday, less tender today Assessment and Plan (1) Unilateral primary osteoarthritis, left hip Assessment & Plan: POD#2 s/p left THR anterior -patient's tachycardia improving, however hgb dropping, ?hemodilutional no clinical suspicion of active bleeding in thigh will f/u labs, blood loss post op should be leveling off at this point post op -PT/oT -d/c planning -VTE proph with aspirin as per Dr. Blackman -d/w Dr. Blackman, agrees with above Status: Acute (2) Acute blood loss anemia Assessment & Plan: s/p 1uPRBC today monitor tachycardia repeat h/h Status: Acute (3) Hypertension Status: Chronic (4) Diabetes type 2, controlled Status: Chronic (5) Hypercholesteremia Status: Chronic
--- NOTE | 2017-02-07 14:58 | VASCLAB ---
PROCEDURE: Lower Extremity Venous Duplex Exam. HISTORY: swelling r/o DVT PRIORS: None. TECHNIQUE: Bilateral common femoral, femoral, popliteal and posterior tibial, peroneal and great saphenous veins were evaluated. Flow was assessed with color Doppler, compressibility, assessment of phasic flow and augmentation response. Report prepared by Drake Cook, MARCELINO, RVT FINDINGS: RIGHT: 1. Common Femoral Vein: 1.1. Compressibility - Fully compressible: Thrombus - None : Flow - Phasic: Augmentation -Normal: Reflux - None. 2. Femoral Vein: 2.1. Compressibility - Fully compressible: Thrombus - None : Flow - Phasic: Augmentation -Normal: Reflux - None. 3. Popliteal Vein: 3.1. Compressibility - Fully compressible: Thrombus - None : Flow - Phasic: Augmentation -Normal: Reflux - None. 4. Posterior Tibial Vein: 4.1. Compressibility - Fully compressible: Thrombus - None: Flow - Phasic: Augmentation -Normal: Reflux - None. 5. Peroneal Vein: 5.1. Compressibility - Fully compressible: Thrombus - None: Flow - Phasic: Augmentation -Normal: Reflux - None. 6. Great Saphenous Vein: 6.1. Compressibility - Fully compressible: Thrombus - None: Flow - Phasic: Augmentation - Normal: Reflux - None. LEFT: 1. Common Femoral Vein: 1.1. Compressibility - Fully compressible: Thrombus - None: Flow - Phasic: Augmentation -Normal: Reflux - None. 2. Femoral Vein: 2.1. Compressibility - Fully compressible: Thrombus - None: Flow - Phasic: Augmentation -Normal: Reflux - None. 3. Popliteal Vein: 3.1. Compressibility - Fully compressible: Thrombus - None : Flow - Phasic: Augmentation -Normal: Reflux - None. 4. Posterior Tibial Vein: 4.1. Compressibility - Fully compressible: Thrombus - None: Flow - Phasic: Augmentation -Normal: Reflux - None. 5. Peroneal Vein: 5.1. Compressibility - Fully compressible: Thrombus - None: Flow - Phasic: Augmentation -Normal: Reflux - None. 6. Great Saphenous Vein: 6.1. Compressibility - Fully compressible: Thrombus - None: Flow - Phasic: Augmentation - Normal: Reflux - None. OTHER FINDINGS: Right: None significant. Left: None significant. IMPRESSION: Right: No evidence of deep or superficial vein thrombosis of the right lower extremity. Normal valve function noted of the right side. Left: No evidence of deep or superficial vein thrombosis of the left lower extremity. Normal valve function noted of the left side.
[2017-02-07 16:01] VITALS: RESP 20
--- NOTE | 2017-02-07 19:58 | CP.PCM.PN ---
Subjective - Date & Time of Evaluation Date of Evaluation: 02/07/17 Time of Evaluation: 19:54 - Subjective Subjective: Code Star: 61 year old male s/p left total hip replacement secondary to osteoarthritis falls after trying to get out of chair to bed on his own. Patient states he was tired of sitting in the chair and wanted to get up. He was lifted from the ground to the bed by a back board with 4 people for assistance. Patient stated his pain was a 10/10 currently. His vitals: B/P 147/74; HR 123; Temp 98; 93% RA. Objective - Vital Signs/Intake and Output Vital Signs (last 24 hours): Temp Pulse Resp BP Pulse Ox 98.9 F 126 H 20 159/74 H 95 02/07/17 15:57 02/07/17 16:09 02/07/17 15:57 02/07/17 15:57 02/07/17 15:57 Intake and Output: 02/07/17 02/08/17 18:59 06:59 Intake Total 800 Output Total 700 Balance 100 - Medications Medications: Current Medications Aspirin (Ecotrin) 81 mg PO Q12H [facility] Last Admin: 02/07/17 10:17 Dose: 81 mg Docusate Sodium (Colace) 100 mg PO BID [facility] Last Admin: 02/07/17 10:17 Dose: 100 mg Enalapril Maleate (Vasotec) 10 mg PO DAILY [facility] Last Admin: 02/07/17 10:19 Dose: 10 mg Famotidine (Pepcid) 20 mg PO BID [facility] Last Admin: 02/07/17 10:17 Dose: 20 mg Heparin Sodium (Porcine) (Heparin) 5,000 units SC Q8 [facility] Last Admin: 02/07/17 15:00 Dose: 5,000 units Hydromorphone HCl (Dilaudid) 1 mg IVP Q4H PRN PRN Reason: Pain, severe (8-10) Last Admin: 02/07/17 10:17 Dose: 1 mg Insulin Aspart (Novolog Mix 70/30 (70/30 Units/Ml)) 10 units SC TID [facility] Last Admin: 02/07/17 15:01 Dose: 10 units Insulin Glargine (Lantus) 40 unit SC HS [facility] Last Admin: 02/06/17 22:00 Dose: Not Given Metformin HCl (Glucophage) 850 mg PO BID [facility] Last Admin: 02/07/17 10:17 Dose: 850 mg Metoprolol Succinate (Toprol Xl) 25 mg PO DAILY [facility] Last Admin: 02/07/17 10:17 Dose: 25 mg Ondansetron HCl (Zofran Inj) 4 mg IVP Q6 PRN PRN Reason: Nausea Last Admin: 02/06/17 08:13 Dose: 4 mg Oxycodone/Acetaminophen (Percocet 5/325 Mg Tab) 2 tab PO Q4H PRN PRN Reason: Pain, moderate (4-7) Stop: 02/08/17 18:31 Rosuvastatin Calcium (Crestor) 5 mg PO HS [facility] Last Admin: 02/06/17 21:38 Dose: 5 mg - Labs Labs: 02/07/17 07:06 02/07/17 07:06 APTT 28 SECONDS (21-34) 02/06/17 14:27 - Constitutional Appears: In Acute Distress - Head Exam Head Exam: ATRAUMATIC, NORMAL INSPECTION, NORMOCEPHALIC - Eye Exam Eye Exam: EOMI, Normal appearance - ENT Exam ENT Exam: Mucous Membranes Moist - Respiratory Exam Respiratory Exam: Clear to Ausculation Bilateral, NORMAL BREATHING PATTERN - Cardiovascular Exam Cardiovascular Exam: Tachycardia, +S1, +S2 - GI/Abdominal Exam GI & Abdominal Exam: Soft, Normal Bowel Sounds. absent: Tenderness - Extremities Exam Extremities Exam: Tenderness Additional comments: Left lower leg was slightly internally rotated. - Neurological Exam Neurological Exam: Alert, Awake, Oriented x3 Assessment and Plan - Assessment and Plan (Free Text) Assessment: s/p fall - f/u xray of bilateral hip - notified Brittaney Stock and she is aware of the fall.
[2017-02-07 20:39] LABS: BASO % 0.3 % (0.0-2.0); EOS % 0.1 % (0.0-4.0); HEMATOCRIT 25.5 % (35.0-51.0); LYMPH # 1.2 K/uL (1.0-4.3); LYMPH % 9.7 % (20.0-40.0); MEAN CORPUSCULAR HEMOGLOBIN 27.3 pg (27.0-31.0); MEAN CORPUSCULAR HGB CONC 33.7 g/dL (33.0-37.0); MEAN PLATELET VOLUME 9.1 fL (7.2-11.7); MONO % 7.9 % (0.0-10.0); PLATELET COUNT 177 K/uL (130-400); RED CELL DISTRIBUTION WIDTH 14.7 % (11.5-14.5); WHITE BLOOD COUNT 12.9 K/uL (4.8-10.8)
[2017-02-07 21:01] LABS: EOSINOPHIL 1 % (0-4); NEUTROPHIL 80 % (50-75); TOTAL CELLS COUNTED 100
[2017-02-07 21:02] LABS: LARGE PLATELETS PRESENT
--- NOTE | 2017-02-07 23:38 | CARD ---
APPROVED REPORT EKG Measurement Heart [id number] LA [id number] <Conclusion> Sinus tachycardia T wave abnormality, consider lateral ischemia Abnormal ECG
--- NOTE | 2017-02-07 23:46 | CARD ---
APPROVED REPORT EKG Measurement Heart [id number] MN [id number] [id number] <Conclusion> Sinus tachycardia Cannot rule out Inferior infarct, age undetermined Cannot rule out Anterior infarct, age undetermined T wave abnormality, consider lateral ischemia Abnormal ECG
--- NOTE | 2017-02-07 23:49 | CARD ---
APPROVED REPORT EKG Measurement Heart [id number] LA [id number] [id number] <Conclusion> Sinus tachycardia Cannot rule out Anterior infarct, age undetermined T wave abnormality, consider lateral ischemia Abnormal ECG
[2017-02-08] MEDS: (Lantus) Insulin Glargine, Recombinant SC SCH ×2 (00:07→22:14)
[2017-02-08 07:49] LABS: BASO % 0.2 % (0.0-2.0); EOS % 0.1 % (0.0-4.0); HEMATOCRIT 25.4 % (35.0-51.0); LYMPH # 1.3 K/uL (1.0-4.3); LYMPH % 11.9 % (20.0-40.0); MEAN CELL VOLUME 80.8 fL (80.0-94.0); MEAN CORPUSCULAR HGB CONC 34.7 g/dL (33.0-37.0); MEAN PLATELET VOLUME 9.2 fL (7.2-11.7); MONO % 8.6 % (0.0-10.0); RED CELL DISTRIBUTION WIDTH 14.8 % (11.5-14.5); WHITE BLOOD COUNT 11.1 K/uL (4.8-10.8)
[2017-02-08 08:12] LABS: CHLORIDE 92 mmol/L (98-107)
[2017-02-08 08:13] LABS: POTASSIUM 3.5 mmol/L (3.6-5.2); SODIUM 130 mmol/L (132-148)
[2017-02-08 08:15] LABS: CARBON DIOXIDE 29 mmol/L (22-30); GFR AFRICAN-AMERICAN > 60
[2017-02-08 08:16] LABS: ALB/GLOB RATIO 1.3 (1.0-2.1); ALKALINE PHOSPHATASE 59 U/L (38-126); ALT/SGPT 27 U/L (21-72); AST/SGOT 38 U/L (17-59); BILIRUBIN,TOTAL 0.7 mg/dL (0.2-1.3); BLOOD UREA NITROGEN 10 mg/dL (9-20); GLUCOSE,RANDOM 147 mg/dL (75-110); TOTAL PROTEIN 5.9 g/dL (6.3-8.3)
[2017-02-08 08:17] LABS: CALCIUM 8.1 mg/dl (8.6-10.4); MAGNESIUM 2.1 mg/dL (1.6-2.3)
--- NOTE | 2017-02-08 08:40 | RAD ---
PROCEDURE: HISTORY: s/p fall COMPARISON: 02/05/2017 TECHNIQUE: AP view of the pelvis and applicable frog leg views obtained. FINDINGS: status post left hip panfilo arthroplasty. The acetabular and femoral stem components appear anatomically aligned. Left gluteal soft tissue postop changes and skin sutures are in place Lumbosacral level transitional elements suggested IMPRESSION: Status post left hip hemiarthroplasty. No hardware failure apparent
[2017-02-08] MEDS ORDERED: Potassium Chloride 20 mEq ER Tab PO ONE (08:58)
--- NOTE | 2017-02-08 09:03 | CP.PCM.PN ---
<Maria G Parks - Last Filed: 02/08/17 16:31> Subjective - Date & Time of Evaluation Date of Evaluation: 02/08/17 Time of Evaluation: 09:00 - Subjective Subjective: Medicine Note for Dr. Tripp Patient seen and examined at bedside. Patient resting comfortably in bed with no new complaints at this time. Patient is having some post op pain that he says is well controlled on the pain medication. Patient has not had a BM yet but is passing flatus. Patient admits to feeling fatigued and says he is hungry. Patient fell last night and does not have any new pain from the fall. He denies CP, SOB, F&C, AP, N&V, diarrhea, palpitations, calf pain, and swelling. Objective - Vital Signs/Intake and Output Vital Signs (last 24 hours): Temp Pulse Resp BP Pulse Ox 99.1 F 116 H 20 158/81 H 96 02/08/17 08:08 02/08/17 08:08 02/08/17 08:08 02/08/17 08:08 02/08/17 08:08 Intake and Output: 02/08/17 02/08/17 06:59 18:59 Intake Total 200 Balance 200 - Medications Medications: Current Medications Aspirin (Ecotrin) 81 mg PO Q12H [facility] Last Admin: 02/08/17 00:05 Dose: 81 mg Docusate Sodium (Colace) 100 mg PO BID [facility] Last Admin: 02/07/17 23:15 Dose: 100 mg Enalapril Maleate (Vasotec) 10 mg PO DAILY [facility] Last Admin: 02/07/17 10:19 Dose: 10 mg Famotidine (Pepcid) 20 mg PO BID [facility] Last Admin: 02/07/17 23:17 Dose: 20 mg Heparin Sodium (Porcine) (Heparin) 5,000 units SC Q8 [facility] Last Admin: 02/08/17 06:36 Dose: 5,000 units Hydromorphone HCl (Dilaudid) 1 mg IVP Q4H PRN PRN Reason: Pain, severe (8-10) Last Admin: 02/07/17 20:33 Dose: 1 mg Insulin Aspart (Novolog Mix 70/30 (70/30 Units/Ml)) 10 units SC TID [facility] Last Admin: 02/07/17 18:00 Dose: Not Given Insulin Glargine (Lantus) 40 unit SC [facility] Last Admin: 02/08/17 00:07 Dose: 40 u Metformin HCl (Glucophage) 850 mg PO BID [facility] Last Admin: 02/07/17 18:00 Dose: Not Given Metoprolol Succinate (Toprol Xl) 25 mg PO DAILY [facility] Last Admin: 02/07/17 10:17 Dose: 25 mg Ondansetron HCl (Zofran Inj) 4 mg IVP Q6 PRN PRN Reason: Nausea Last Admin: 02/06/17 08:13 Dose: 4 mg Oxycodone/Acetaminophen (Percocet 5/325 Mg Tab) 2 tab PO Q4H PRN PRN Reason: Pain, moderate (4-7) Stop: 02/08/17 18:31 Potassium Chloride (K-Dur 20 Meq Er Tab) 20 meq PO ONCE ONE Stop: 02/08/17 08:59 Rosuvastatin Calcium (Crestor) 5 mg PO [facility] Last Admin: 02/07/17 23:15 Dose: 5 mg - Labs Labs: 02/08/17 07:16 02/08/17 07:16 APTT 28 SECONDS (21-34) 02/06/17 14:27 - Additional Findings Additional findings: - Constitutional Appears: Non-toxic, No Acute Distress - Head Exam Head Exam: NORMAL INSPECTION - Eye Exam Eye Exam: EOMI, Normal appearance - ENT Exam ENT Exam: Mucous Membranes Moist - Respiratory Exam Respiratory Exam: Clear to Ausculation Bilateral, NORMAL BREATHING PATTERN. absent: Accessory Muscle Use, Rales, Rhonchi, Wheezes, Respiratory Distress - Cardiovascular Exam Cardiovascular Exam: Tachycardia, +S1, +S2, Murmur (JOANNE). - GI/Abdominal Exam GI & Abdominal Exam: Distended, Soft, Normal Bowel Sounds. absent: Guarding, Tenderness - Extremities Exam Extremities Exam: Normal Inspection. absent: Calf Tenderness, Pedal Edema Additional comments: bandage over incision of left hip c/d/i - Neurological Exam Neurological Exam: Alert, Awake - Psychiatric Exam Psychiatric exam: Normal Affect, Normal Mood - Skin Skin Exam: Dry, Intact, Normal Color, Warm Assessment and Plan - Assessment and Plan (Free Text) Plan: s/p Total hip replacement POD#3 * Cefazolin * Dilaudid 1mg PRN * Percocet 2 tab q4 PRN * Colace 100mg PO BID * N/S @ 100 cc/hr * Encouraged incentive spirometer * [place]: Dr. Horta - lissy appreciated * Hip X ray s/p fall (02/07): no acute changes, no hardware failure. Chest Pain/Pressure - resolved * started POD#0/1 * REINALDO and EKG negative x3 * Chest CT 02/08: There is suboptimal opacification of the pulmonary arteries limiting evaluation for pulmonary embolus. Given this limitation, there are no visible intraluminal filling defects within the central pulmonary arteries to suggest central pulmonary embolism. Right lower lobe infiltrates/atelectasis. Mild left basilar atelectasis. LE swelling - resolved * venous dupplex b/l LEs negative Sinus Tachycardia * n/s bolus 500ml given 02/05 * EKG - sinus tachy * On Telemetry * Possibly 2/2 anemia Acute Anemia * 700ml blood loss during surgery * H/H s/p surgery: 11.8/36.9 * POD#1 (02/06): 11.1/33.9 * POD#2 (02/07): 8.1/24.3 - transfused 1 U PRBCs, H&H 8.6/25.5 * POD#3 (02/08): 8.8/25.4 * Monitor H/H * Blood type: A+ * Antibody screen: negative Leukocytosis * continue to monitor CBCs History of hypertension * Metoprolol succinate 25mg PO daily * Enalapril 10mg PO daily History Diabetes * Metformin 850mg PO BID * Insulin Glargine 40 unit SC HS * Insulin Aspart 10 U SC TID * Monitor blood glucose ACHS and consider increasing insulin if uncontrolled History of Hyperlipidemia * Rosuvastatin 5mg PO HS Prophylaxis * c/i to SCDs - LE swelling * Heparin 5000 U SC Q8 * Pepcid 20 mg BID Disposition: Patient ready to be discharged to [facility] - awaiting authorization Case discussed with Dr. Josee Parks, PGY1 <Leti Tripp - Last Filed: 02/08/17 17:29> Objective - Vital Signs/Intake and Output Vital Signs (last 24 hours): Temp Pulse Resp BP Pulse Ox 99.1 F 117 H 20 138/76 96 02/08/17 15:20 02/08/17 15:45 02/08/17 15:20 02/08/17 15:20 02/08/17 15:45 Intake and Output: 02/08/17 02/08/17 06:59 18:59 Intake Total 200 480 Output Total 400 Balance 200 80 - Medications Medications: Current Medications Aspirin (Ecotrin) 81 mg PO Q12H [facility] Last Admin: 02/08/17 09:30 Dose: 81 mg Docusate Sodium (Colace) 100 mg PO BID [facility] Last Admin: 02/08/17 09:19 Dose: 100 mg Enalapril Maleate (Vasotec) 10 mg PO DAILY [facility] Last Admin: 02/08/17 09:18 Dose: 10 mg Famotidine (Pepcid) 20 mg PO BID [facility] Last Admin: 02/08/17 09:19 Dose: 20 mg Guaifenesin (Robitussin) 200 mg PO Q4H PRN PRN Reason: Cough and congestion Heparin Sodium (Porcine) (Heparin) 5,000 units SC Q8 [facility] Last Admin: 02/08/17 13:11 Dose: 5,000 units Hydromorphone HCl (Dilaudid) 1 mg IVP Q4H PRN PRN Reason: Pain, severe (8-10) Last Admin: 02/08/17 13:30 Dose: 1 mg Insulin Aspart (Novolog Mix 70/30 (70/30 Units/Ml)) 10 units SC TID [facility] Last Admin: 02/08/17 13:11 Dose: 10 units Insulin Glargine (Lantus) 40 unit SC [facility] Last Admin: 02/08/17 00:07 Dose: 40 u Metformin HCl (Glucophage) 850 mg PO BID [facility] Last Admin: 02/08/17 09:18 Dose: 850 mg Metoprolol Succinate (Toprol Xl) 25 mg PO DAILY [facility] Last Admin: 02/08/17 09:28 Dose: 25 mg Ondansetron HCl (Zofran Inj) 4 mg IVP Q6 PRN PRN Reason: Nausea Last Admin: 02/06/17 08:13 Dose: 4 mg Oxycodone/Acetaminophen (Percocet 5/325 Mg Tab) 2 tab PO Q4H PRN PRN Reason: Pain, moderate (4-7) Stop: 02/08/17 18:31 Rosuvastatin Calcium (Crestor) 5 mg PO [facility] Last Admin: 02/07/17 23:15 Dose: 5 mg - Labs Labs: 02/08/17 07:16 02/08/17 07:16 APTT 28 SECONDS (21-34) 02/06/17 14:27 Attending/Attestation - Attestation I have personally seen and examined this patient.: Yes I have fully participated in the care of the patient.: Yes I have reviewed all pertinent clinical information, including history, physical exam and plan: Yes Notes (Text): This is a 61 years old male with history of DM,HTMN,arthritis and HLD s/p Left hip replacement seen and examined this morning.He is tachycardia is improving ,CT chest done , no PE,s/p Blood transfusion.Todays hemoglobin is 8.8. Feels better. 1.Left hip replacement 2.Anemia and tachycardia post surgery blood loss. one unit of PRBC given tachycardia is improving.CT chest negative for PE 3.Hyponatremia-follow sodium 4.DM 5.HTN continue current meds Discussed with the resident. Agree with the documentation of assessment and plan
[2017-02-08] MEDS: (Novolog Mix 70/30) Insulin Aspart/Insulin Aspar 100 units/ml SC SCH ×3 (09:19→18:59)
[2017-02-08] MEDS: HYDROmorphone 1 mg/ml ISec IVP PRN ×3 (09:19→20:20)
[2017-02-08] MEDS: Metoprolol Succinate 25 mg XL Tab PO SCH (09:28)
[2017-02-08] MEDS ORDERED: Iodixanol 320 MG/ML 100 ML BOTTLE IV ONE (10:47)
--- NOTE | 2017-02-08 11:54 | CT ---
CTA chest PE protocol Indication: tachycardia post op THR Technique: Contiguous axial images were obtained through the chest with intravenous contrast enhancement. Sagittal and coronal reconstructions were generated and reviewed. This CT exam was performed using 1 or more of the falling dose reduction techniques: Automated exposure control, adjustment of the MAA and/or kV according to patient size, and/or use of iterative reconstruction technique. IV Contrast: 100 mL Visipaque Radiation dose (DLP): 521.28 MGy-cm. Comparison: Chest x-ray performed 01/25/17 Findings: Visualized portions of the inferior thyroid gland appear unremarkable. The mediastinal and hilar vascular structures appear within normal limits. The heart appears within normal limits of size. There is suboptimal opacification of the pulmonary arteries limiting evaluation for pulmonary embolus. Given this limitation, there are no visible intraluminal filling defects within the central pulmonary arteries to suggest central pulmonary embolism. Right lower lobe infiltrates/atelectasis. Mild left basilar atelectasis. No pleural effusion. No pneumothorax. Limited visualized portions of the upper abdomen demonstrates 13 mm probable splenule inferior to the spleen. Partially imaged right shoulder arthroplasty with resultant streak artifact. Degenerative changes of the spine. Mild scoliosis. Impression: There is suboptimal opacification of the pulmonary arteries limiting evaluation for pulmonary embolus. Given this limitation, there are no visible intraluminal filling defects within the central pulmonary arteries to suggest central pulmonary embolism. Right lower lobe infiltrates/atelectasis. Mild left basilar atelectasis.
[2017-02-08] MEDS ORDERED: guaiFENesin 200 mg/10 ml Syrup UD PO PRN (14:13)
--- NOTE | 2017-02-08 16:55 | CP.PCM.PN ---
<Brittaney Webb - Last Filed: 02/08/17 16:52> Subjective - Date & Time of Evaluation Date of Evaluation: 02/08/17 Time of Evaluation: 16:52 - Subjective Subjective: Patient feeling better. Pain controlled. Events noted. Imaging post fall reviewed with Dr. Blakcman. No actue fracture or dislocation appreciated. Objective - Vital Signs/Intake and Output Vital Signs (last 24 hours): Temp Pulse Resp BP Pulse Ox 99.1 F 117 H 20 150/80 96 02/08/17 08:08 02/08/17 15:45 02/08/17 08:08 02/08/17 09:18 02/08/17 15:45 Intake and Output: 02/08/17 02/08/17 06:59 18:59 Intake Total 200 480 Output Total 400 Balance 200 80 - Medications Medications: Current Medications Aspirin (Ecotrin) 81 mg PO Q12H [facility] Last Admin: 02/08/17 09:30 Dose: 81 mg Docusate Sodium (Colace) 100 mg PO BID [facility] Last Admin: 02/08/17 09:19 Dose: 100 mg Enalapril Maleate (Vasotec) 10 mg PO DAILY [facility] Last Admin: 02/08/17 09:18 Dose: 10 mg Famotidine (Pepcid) 20 mg PO BID [facility] Last Admin: 02/08/17 09:19 Dose: 20 mg Guaifenesin (Robitussin) 200 mg PO Q4H PRN PRN Reason: Cough and congestion Heparin Sodium (Porcine) (Heparin) 5,000 units SC Q8 [facility] Last Admin: 02/08/17 13:11 Dose: 5,000 units Hydromorphone HCl (Dilaudid) 1 mg IVP Q4H PRN PRN Reason: Pain, severe (8-10) Last Admin: 02/08/17 13:30 Dose: 1 mg Insulin Aspart (Novolog Mix 70/30 (70/30 Units/Ml)) 10 units SC TID [facility] Last Admin: 02/08/17 13:11 Dose: 10 units Insulin Glargine (Lantus) 40 unit SC HS [facility] Last Admin: 02/08/17 00:07 Dose: 40 u Metformin HCl (Glucophage) 850 mg PO BID [facility] Last Admin: 02/08/17 09:18 Dose: 850 mg Metoprolol Succinate (Toprol Xl) 25 mg PO DAILY [facility] Last Admin: 02/08/17 09:28 Dose: 25 mg Ondansetron HCl (Zofran Inj) 4 mg IVP Q6 PRN PRN Reason: Nausea Last Admin: 02/06/17 08:13 Dose: 4 mg Oxycodone/Acetaminophen (Percocet 5/325 Mg Tab) 2 tab PO Q4H PRN PRN Reason: Pain, moderate (4-7) Stop: 02/08/17 18:31 Rosuvastatin Calcium (Crestor) 5 mg PO HS [facility] Last Admin: 02/07/17 23:15 Dose: 5 mg - Labs Labs: 02/08/17 07:16 02/08/17 07:16 APTT 28 SECONDS (21-34) 02/06/17 14:27 - Extremities Exam Additional comments: left thigh: ? slightly more swollen today. Ice applied. Dressing changed. incision intact, no active drainage, no erythema. +ROM ankle/toes, sensation intact, +Dp/PT pulses calves soft NT neg homans Assessment and Plan (1) Unilateral primary osteoarthritis, left hip Assessment & Plan: POD#3 s/p left THR s/p 1uPRBC tachycardia better this afternoon CT angio per Dr blackman was of poor quality, but no central PE noted some atelectasis noted, IS encouraged, encourage OOB d/c planning to rehab labs in am if continues to be stable, will plan for discharge d/w Dr. Blackman, agrees with above Status: Acute (2) Acute blood loss anemia Status: Acute (3) Hypertension Status: Chronic (4) Diabetes type 2, controlled Status: Chronic (5) Hypercholesteremia Status: Chronic <Leti Tripp - Last Filed: 02/08/17 17:19> Objective - Vital Signs/Intake and Output Vital Signs (last 24 hours): Temp Pulse Resp BP Pulse Ox 99.1 F 117 H 20 138/76 96 02/08/17 15:20 02/08/17 15:45 02/08/17 15:20 02/08/17 15:20 02/08/17 15:45 Intake and Output: 02/08/17 02/08/17 06:59 18:59 Intake Total 200 480 Output Total 400 Balance 200 80 - Medications Medications: Current Medications Aspirin (Ecotrin) 81 mg PO Q12H [facility] Last Admin: 02/08/17 09:30 Dose: 81 mg Docusate Sodium (Colace) 100 mg PO BID [facility] Last Admin: 02/08/17 09:19 Dose: 100 mg Enalapril Maleate (Vasotec) 10 mg PO DAILY [facility] Last Admin: 02/08/17 09:18 Dose: 10 mg Famotidine (Pepcid) 20 mg PO BID [facility] Last Admin: 02/08/17 09:19 Dose: 20 mg Guaifenesin (Robitussin) 200 mg PO Q4H PRN PRN Reason: Cough and congestion Heparin Sodium (Porcine) (Heparin) 5,000 units SC Q8 [facility] Last Admin: 02/08/17 13:11 Dose: 5,000 units Hydromorphone HCl (Dilaudid) 1 mg IVP Q4H PRN PRN Reason: Pain, severe (8-10) Last Admin: 02/08/17 13:30 Dose: 1 mg Insulin Aspart (Novolog Mix 70/30 (70/30 Units/Ml)) 10 units SC TID [facility] Last Admin: 02/08/17 13:11 Dose: 10 units Insulin Glargine (Lantus) 40 unit SC [facility] Last Admin: 02/08/17 00:07 Dose: 40 u Metformin HCl (Glucophage) 850 mg PO BID [facility] Last Admin: 02/08/17 09:18 Dose: 850 mg Metoprolol Succinate (Toprol Xl) 25 mg PO DAILY [facility] Last Admin: 02/08/17 09:28 Dose: 25 mg Ondansetron HCl (Zofran Inj) 4 mg IVP Q6 PRN PRN Reason: Nausea Last Admin: 02/06/17 08:13 Dose: 4 mg Oxycodone/Acetaminophen (Percocet 5/325 Mg Tab) 2 tab PO Q4H PRN PRN Reason: Pain, moderate (4-7) Stop: 02/08/17 18:31 Rosuvastatin Calcium (Crestor) 5 mg PO HS [facility] Last Admin: 02/07/17 23:15 Dose: 5 mg - Labs Labs: 02/08/17 07:16 02/08/17 07:16 APTT 28 SECONDS (21-34) 02/06/17 14:27
[2017-02-08] MEDS ORDERED: Bisacodyl 5mg EC Tab PO ONE (17:15)
[2017-02-09] MEDS: HYDROmorphone 1 mg/ml ISec IVP PRN ×3 (01:20→16:20)
[2017-02-09 07:58] LABS: BASO % 0.3 % (0.0-2.0); EOS # 0.1 K/uL (0.0-0.7); EOS % 1.1 % (0.0-4.0); LYMPH # 1.3 K/uL (1.0-4.3); LYMPH % 14.4 % (20.0-40.0); MEAN CELL VOLUME 81.1 fL (80.0-94.0); MEAN CORPUSCULAR HEMOGLOBIN 27.9 pg (27.0-31.0); MEAN CORPUSCULAR HGB CONC 34.5 g/dL (33.0-37.0); MEAN PLATELET VOLUME 8.8 fL (7.2-11.7); MONO # 0.9 K/uL (0.0-0.8); MONO % 9.9 % (0.0-10.0); RED CELL DISTRIBUTION WIDTH 14.7 % (11.5-14.5)
[2017-02-09 08:40] LABS: CHLORIDE 90 mmol/L (98-107); POTASSIUM 3.5 mmol/L (3.6-5.2); SODIUM 128 mmol/L (132-148)
[2017-02-09 08:42] LABS: ALB/GLOB RATIO 1.3 (1.0-2.1); ALKALINE PHOSPHATASE 73 U/L (38-126); ALT/SGPT 26 U/L (21-72); AST/SGOT 29 U/L (17-59); BILIRUBIN,TOTAL 0.9 mg/dL (0.2-1.3); BLOOD UREA NITROGEN 11 mg/dL (9-20); CARBON DIOXIDE 28 mmol/L (22-30); GFR AFRICAN-AMERICAN > 60; GLUCOSE,RANDOM 177 mg/dL (75-110)
[2017-02-09 08:43] LABS: MAGNESIUM 2.1 mg/dL (1.6-2.3); PHOSPHOROUS 2.9 mg/dL (2.5-4.5)
[2017-02-09] MEDS: Metoprolol Succinate 25 mg XL Tab PO SCH (09:30)
[2017-02-09] MEDS: (Novolog Mix 70/30) Insulin Aspart/Insulin Aspar 100 units/ml SC SCH ×3 (09:31→18:10)
--- NOTE | 2017-02-09 10:49 | CP.PCM.PN ---
Subjective - Date & Time of Evaluation Date of Evaluation: 02/09/17 Time of Evaluation: 10:47 - Subjective Subjective: Patient complaining of thigh pain during PT. Denies CP/SOB/dizziness. Objective - Vital Signs/Intake and Output Vital Signs (last 24 hours): Temp Pulse Resp BP Pulse Ox 98.7 F 112 H 20 132/61 99 02/09/17 08:40 02/09/17 08:40 02/09/17 08:40 02/09/17 09:31 02/09/17 08:40 Intake and Output: 02/09/17 02/09/17 06:59 18:59 Intake Total 20 Output Total 600 Balance -580 - Medications Medications: Current Medications Aspirin (Ecotrin) 81 mg PO Q12H [facility] Last Admin: 02/09/17 09:30 Dose: 81 mg Docusate Sodium (Colace) 100 mg PO BID [facility] Last Admin: 02/09/17 09:29 Dose: 100 mg Enalapril Maleate (Vasotec) 10 mg PO DAILY [facility] Last Admin: 02/09/17 09:31 Dose: 10 mg Famotidine (Pepcid) 20 mg PO BID [facility] Last Admin: 02/09/17 09:30 Dose: 20 mg Guaifenesin (Robitussin) 200 mg PO Q4H PRN PRN Reason: Cough and congestion Heparin Sodium (Porcine) (Heparin) 5,000 units SC Q8 [facility] Last Admin: 02/09/17 05:20 Dose: 5,000 units Hydromorphone HCl (Dilaudid) 1 mg IVP Q4H PRN PRN Reason: Pain, severe (8-10) Last Admin: 02/09/17 10:18 Dose: 1 mg Insulin Aspart (Novolog Mix 70/30 (70/30 Units/Ml)) 10 units SC TID [facility] Last Admin: 02/09/17 09:31 Dose: 10 units Insulin Glargine (Lantus) 40 unit SC HS [facility] Last Admin: 02/08/17 22:14 Dose: 40 u Metformin HCl (Glucophage) 850 mg PO BID [facility] Last Admin: 02/09/17 10:32 Dose: 850 mg Metoprolol Succinate (Toprol Xl) 25 mg PO DAILY [facility] Last Admin: 02/09/17 09:30 Dose: 25 mg Ondansetron HCl (Zofran Inj) 4 mg IVP Q6 PRN PRN Reason: Nausea Last Admin: 02/06/17 08:13 Dose: 4 mg Rosuvastatin Calcium (Crestor) 5 mg PO HS [facility] Last Admin: 02/08/17 22:12 Dose: 5 mg - Labs Labs: 02/09/17 07:47 02/09/17 07:47 APTT 28 SECONDS (21-34) 02/06/17 14:27 - Extremities Exam Additional comments: Left thigh swollen. No change in size, still moderately swollen, h/h stable, ice applied +ROM ankle/toes, sensation intact, +DP/PT pulses calves soft NT neg homans Assessment and Plan (1) Unilateral primary osteoarthritis, left hip Assessment & Plan: POD#4 s/p left THR -ortho stable for d/c to rehab -h/h stable, tachycardia improving -dressing change left thigh daily -ice to left thigh -VTE proph with aspirin 81mg PO BID per Dr. Blackman -f/u approx 10 days, call for appointment [phone] -d/w Dr. Blackman, agrees with above Status: Acute (2) Acute blood loss anemia Status: Acute (3) Hypertension Status: Chronic (4) Diabetes type 2, controlled Status: Chronic (5) Hypercholesteremia Status: Chronic
--- NOTE | 2017-02-09 14:27 | CP.PCM.PN ---
<Maria G Parks - Last Filed: 02/09/17 14:37> Subjective - Date & Time of Evaluation Date of Evaluation: 02/09/17 Time of Evaluation: 14:21 - Subjective Subjective: Medicine note for Dr. Tripp Patient seen and examined at bedside. Patient resting comfortably in bed with no new complaints at this time. Patient is having some mild left hip pain that is well controlled. He is having some nausea but no vomiting. Patient has not had a BM yet but says he feels like he has to. He is passing flatus. Patient is tolerating his diet. He denies CP, SOB, F&C, AP, Vomiting, diarrhea, palpitations, calf pain, and swelling. Objective - Vital Signs/Intake and Output Vital Signs (last 24 hours): Temp Pulse Resp BP Pulse Ox 98.7 F 112 H 20 132/61 99 02/09/17 08:40 02/09/17 08:40 02/09/17 08:40 02/09/17 09:31 02/09/17 08:40 Intake and Output: 02/09/17 02/09/17 06:59 18:59 Intake Total 20 Output Total 600 Balance -580 - Medications Medications: Current Medications Aspirin (Ecotrin) 81 mg PO Q12H [facility] Last Admin: 02/09/17 09:30 Dose: 81 mg Docusate Sodium (Colace) 100 mg PO BID [facility] Last Admin: 02/09/17 09:29 Dose: 100 mg Enalapril Maleate (Vasotec) 10 mg PO DAILY [facility] Last Admin: 02/09/17 09:31 Dose: 10 mg Famotidine (Pepcid) 20 mg PO BID [facility] Last Admin: 02/09/17 09:30 Dose: 20 mg Guaifenesin (Robitussin) 200 mg PO Q4H PRN PRN Reason: Cough and congestion Hydromorphone HCl (Dilaudid) 1 mg IVP Q4H PRN PRN Reason: Pain, severe (8-10) Last Admin: 02/09/17 10:18 Dose: 1 mg Insulin Aspart (Novolog Mix 70/30 (70/30 Units/Ml)) 10 units SC TID [facility] Last Admin: 02/09/17 13:36 Dose: 10 units Insulin Glargine (Lantus) 40 unit SC HS [facility] Last Admin: 02/08/17 22:14 Dose: 40 u Metformin HCl (Glucophage) 850 mg PO BID [facility] Last Admin: 02/09/17 10:32 Dose: 850 mg Metoprolol Succinate (Toprol Xl) 25 mg PO DAILY [facility] Last Admin: 02/09/17 09:30 Dose: 25 mg Ondansetron HCl (Zofran Inj) 4 mg IVP Q6 PRN PRN Reason: Nausea Last Admin: 02/06/17 08:13 Dose: 4 mg Rosuvastatin Calcium (Crestor) 5 mg PO HS [facility] Last Admin: 02/08/17 22:12 Dose: 5 mg - Labs Labs: 02/09/17 07:47 02/09/17 07:47 APTT 28 SECONDS (21-34) 02/06/17 14:27 - Additional Findings Additional findings: - Constitutional Appears: Non-toxic, No Acute Distress - Head Exam Head Exam: NORMAL INSPECTION - Eye Exam Eye Exam: EOMI, Normal appearance - ENT Exam ENT Exam: Mucous Membranes Moist - Respiratory Exam Respiratory Exam: Clear to Ausculation Bilateral, NORMAL BREATHING PATTERN. absent: Accessory Muscle Use, Rales, Rhonchi, Wheezes, Respiratory Distress - Cardiovascular Exam Cardiovascular Exam: Tachycardia, +S1, +S2, Murmur (JOANNE). - GI/Abdominal Exam GI & Abdominal Exam: Distended, Soft, Normal Bowel Sounds. absent: Guarding, Tenderness - Extremities Exam Extremities Exam: Normal Inspection. absent: Calf Tenderness, Pedal Edema Additional comments: bandage over incision of left hip c/d/i - Neurological Exam Neurological Exam: Alert, Awake - Psychiatric Exam Psychiatric exam: Normal Affect, Normal Mood - Skin Skin Exam: Dry, Intact, Normal Color, Warm Assessment and Plan - Assessment and Plan (Free Text) Plan: s/p Total hip replacement POD#3 * Cefazolin * Dilaudid 1mg PRN * Percocet 2 tab q4 PRN * Colace 100mg PO BID * N/S @ 100 cc/hr * Encouraged incentive spirometer * [place]: Dr. Mychal yuan appreciated * Hip X ray s/p fall (02/07): no acute changes, no hardware failure. Chest Pain/Pressure - resolved * started POD#0/1 * REINALDO and EKG negative x3 * Chest CT 02/08: There is suboptimal opacification of the pulmonary arteries limiting evaluation for pulmonary embolus. Given this limitation, there are no visible intraluminal filling defects within the central pulmonary arteries to suggest central pulmonary embolism. Right lower lobe infiltrates/atelectasis. Mild left basilar atelectasis. LE swelling - resolved * venous dupplex b/l LEs negative Sinus Tachycardia * n/s bolus 500ml given 02/05 * EKG - sinus tachy * On Telemetry * Possibly 2/2 anemia Acute Anemia * 700ml blood loss during surgery * H/H s/p surgery: 11.8/36.9 * POD#1 (02/06): 11.1/33.9 * POD#2 (02/07): 8.1/24.3 - transfused 1 U PRBCs, H&H 8.6/25.5 * POD#3 (02/08): 8.8/25.4 * Monitor H/H * Blood type: A+ * Antibody screen: negative Leukocytosis * continue to monitor CBCs History of hypertension * Metoprolol succinate 25mg PO daily * Enalapril 10mg PO daily History Diabetes * Metformin 850mg PO BID * Insulin Glargine 40 unit SC HS * Insulin Aspart 10 U SC TID * Monitor blood glucose ACHS and consider increasing insulin if uncontrolled History of Hyperlipidemia * Rosuvastatin 5mg PO HS Prophylaxis * c/i to SCDs - LE swelling * Heparin 5000 U SC Q8 * Pepcid 20 mg BID Disposition: Patient ready to be discharged pending [facility] authorization Case discussed with Dr. Josee Parks, PGY1 <Leti Tripp - Last Filed: 02/09/17 17:31> Objective - Vital Signs/Intake and Output Vital Signs (last 24 hours): Temp Pulse Resp BP Pulse Ox 98.7 F 112 H 20 132/61 99 02/09/17 08:40 02/09/17 08:40 02/09/17 08:40 02/09/17 09:31 02/09/17 08:40 Intake and Output: 02/09/17 02/09/17 06:59 18:59 Intake Total 20 Output Total 600 Balance -580 - Medications Medications: Current Medications Aspirin (Ecotrin) 81 mg PO Q12H [facility] Last Admin: 02/09/17 09:30 Dose: 81 mg Docusate Sodium (Colace) 100 mg PO BID [facility] Last Admin: 02/09/17 09:29 Dose: 100 mg Enalapril Maleate (Vasotec) 10 mg PO DAILY [facility] Last Admin: 02/09/17 09:31 Dose: 10 mg Famotidine (Pepcid) 20 mg PO BID [facility] Last Admin: 02/09/17 09:30 Dose: 20 mg Guaifenesin (Robitussin) 200 mg PO Q4H PRN PRN Reason: Cough and congestion Hydromorphone HCl (Dilaudid) 1 mg IVP Q4H PRN PRN Reason: Pain, severe (8-10) Last Admin: 02/09/17 16:20 Dose: 1 mg Insulin Aspart (Novolog Mix 70/30 (70/30 Units/Ml)) 10 units SC TID [facility] Last Admin: 02/09/17 13:36 Dose: 10 units Insulin Glargine (Lantus) 40 unit SC HS [facility] Last Admin: 02/08/17 22:14 Dose: 40 u Metformin HCl (Glucophage) 850 mg PO BID [facility] Last Admin: 02/09/17 10:32 Dose: 850 mg Metoprolol Succinate (Toprol Xl) 25 mg PO DAILY [facility] Last Admin: 02/09/17 09:30 Dose: 25 mg Ondansetron HCl (Zofran Inj) 4 mg IVP Q6 PRN PRN Reason: Nausea Last Admin: 02/06/17 08:13 Dose: 4 mg Rosuvastatin Calcium (Crestor) 5 mg PO HS [facility] Last Admin: 02/08/17 22:12 Dose: 5 mg - Labs Labs: 02/09/17 07:47 02/09/17 07:47 APTT 28 SECONDS (21-34) 02/06/17 14:27 Attending/Attestation - Attestation I have personally seen and examined this patient.: Yes I have fully participated in the care of the patient.: Yes I have reviewed all pertinent clinical information, including history, physical exam and plan: Yes Notes (Text): This is a 61 years old male with history of DM,HTMN,arthritis and HLD s/p Left hip replacement seen and examined this morning.He is tachycardia is improving ,CT chest done , no PE,s/p Blood transfusion.Hemoglobin is better Seen and examined.No complain. 1.Left hip replacement-D/C to rehab when ready 2.Anemia and tachycardia post surgery blood loss. one unit of PRBC given,Doing good tachycardia is improving.CT chest negative for PE 3.Hyponatremia-follow sodium 4.DM 5.HTN continue current meds Discussed with the resident. Agree with the documentation of assessment and plan 02/09/17 17:28
--- NOTE | 2017-02-09 16:24 | CP.PCM.DIS ---
Provider - Provider Date of Admission: 02/05/17 10:14 Attending physician: Ryan Julien MD Primary care physician: Dr. Marc Consults: Dr. Blackman Time Spent in preparation of Discharge (in minutes): 35 Diagnosis - Discharge Diagnosis (1) Acute blood loss anemia Status: Acute (2) Unilateral primary osteoarthritis, left hip Status: Acute (3) Prophylactic measure Status: Acute (4) Diabetes type 2, controlled Status: Chronic (5) Hypercholesteremia Status: Chronic (6) Hypertension Status: Chronic Hospital Course - Lab Results Lab Results: Most Recent Lab Values WBC 9.0 K/uL (4.8-10.8) 02/09/17 07:47 RBC 3.33 Mil/uL (4.40-5.90) L 02/09/17 07:47 Hgb 9.3 g/dL (12.0-18.0) L 02/09/17 07:47 Hct 27.0 % (35.0-51.0) L 02/09/17 07:47 MCV 81.1 fL (80.0-94.0) 02/09/17 07:47 MCH 27.9 pg (27.0-31.0) 02/09/17 07:47 MCHC 34.5 g/dL (33.0-37.0) 02/09/17 07:47 RDW 14.7 % (11.5-14.5) H 02/09/17 07:47 Plt Count 256 K/uL (130-400) 02/09/17 07:47 MPV 8.8 fL (7.2-11.7) 02/09/17 07:47 Neut % (Auto) 74.3 % (50.0-75.0) 02/09/17 07:47 Lymph % (Auto) 14.4 % (20.0-40.0) L 02/09/17 07:47 Young % (Auto) 9.9 % (0.0-10.0) 02/09/17 07:47 Eos % (Auto) 1.1 % (0.0-4.0) 02/09/17 07:47 Baso % (Auto) 0.3 % (0.0-2.0) 02/09/17 07:47 Neut # 6.7 K/uL (1.8-7.0) 02/09/17 07:47 Lymph # 1.3 K/uL (1.0-4.3) 02/09/17 07:47 Young # 0.9 K/uL (0.0-0.8) H 02/09/17 07:47 Eos # 0.1 K/uL (0.0-0.7) 02/09/17 07:47 Baso # 0.0 K/uL (0.0-0.2) 02/09/17 07:47 Neutrophils % (Manual) 80 % (50-75) H 02/07/17 20:35 Lymphocytes % (Manual) 13 % (20-40) L 02/07/17 20:35 Monocytes % (Manual) 6 % (0-10) 02/07/17 20:35 Eosinophils % (Manual) 1 % (0-4) 02/07/17 20:35 Platelet Estimate Normal (NORMAL) 02/07/17 20:35 Large Platelets Present 02/07/17 20:35 Hypochromasia (manual) Slight 02/07/17 20:35 Poikilocytosis (manual Slight 02/07/17 20:35 Anisocytosis (manual) Slight 02/07/17 20:35 Target Cells Slight 02/07/17 20:35 APTT 28 SECONDS (21-34) 02/06/17 14:27 Sodium 128 mmol/L (132-148) L 02/09/17 07:47 Potassium 3.5 mmol/L (3.6-5.2) L 02/09/17 07:47 Chloride 90 mmol/L (98-107) L 02/09/17 07:47 Carbon Dioxide 28 mmol/L (22-30) 02/09/17 07:47 Anion Gap 14 (10-20) 02/09/17 07:47 BUN 11 mg/dL (9-20) 02/09/17 07:47 Creatinine 0.7 mg/dL (0.8-1.5) L 02/09/17 07:47 Est GFR ( Amer) > 60 02/09/17 07:47 Est GFR (Non-Af Amer) > 60 02/09/17 07:47 POC Glucose (mg/dL) 232 mg/dL (65-110) H 02/09/17 11:49 Random Glucose 177 mg/dL (75-110) H 02/09/17 07:47 Calcium 8.0 mg/dl (8.6-10.4) L 02/09/17 07:47 Phosphorus 2.9 mg/dL (2.5-4.5) 02/09/17 07:47 Magnesium 2.1 mg/dL (1.6-2.3) 02/09/17 07:47 Total Bilirubin 0.9 mg/dL (0.2-1.3) 02/09/17 07:47 AST 29 U/L (17-59) 02/09/17 07:47 ALT 26 U/L (21-72) 02/09/17 07:47 Alkaline Phosphatase 73 U/L (38-126) 02/09/17 07:47 Total Creatine Kinase 1036 U/L (55-170) H 02/06/17 23:01 CK-MB (Mass) 3.71 ng/mL (0.0-3.38) H 02/06/17 23:01 Troponin I, Quant 0.0230 ng/mL (0.00-0.120) 02/06/17 23:01 Total Protein 6.0 g/dL (6.3-8.3) L 02/09/17 07:47 Albumin 3.4 g/dL (3.5-5.0) L 02/09/17 07:47 Globulin 2.7 gm/dL (2.2-3.9) 02/09/17 07:47 Albumin/Globulin Ratio 1.3 (1.0-2.1) 02/09/17 07:47 Blood Type A POSITIVE 02/05/17 11:32 Antibody Screen Negative 02/05/17 11:32 - Hospital Course Hospital Course: Upon Admission 61M complains of left hip pain due to arthritis, failed conservative mgmt and elected for THR. Hospital Course: Patient transferred to medicine team while in PACU. Patient was started on cefazolin, dilaudid & percocet for pain control, colace to prevent post op constipation, and NS @100. Patient was encouraged to use incentive spirometer. Dr. Blackman was consulted to follow his patient. Patient began having SOB and tachycardia the night after surgery. n/s bolus 500ml given 02/05. Placed on telemetry. REINALDO and EKG negative x3. Chest CT 02/08: There is suboptimal opacification of the pulmonary arteries limiting evaluation for pulmonary embolus. Given this limitation, there are no visible intraluminal filling defects within the central pulmonary arteries to suggest central pulmonary embolism. Right lower lobe infiltrates/atelectasis. Mild left basilar atelectasis. Venous dupplex b/l LEs negative. CBC showed anemia. Patient was transfused 1 U PRBCs after type and screen and anemia resolved along with SOB. Patient remained tachycardic , however this began to resolve POD #3. 02/07 patient fell during PT. Hip X ray s/p fall showed no acute changes, no hardware failure. History of hypertension treated with Metoprolol succinate 25mg PO daily and Enalapril 10mg PO daily. History of diabetes was treated with Metformin 850mg PO BID, Insulin Glargine 40 unit SC HS, and Insulin Aspart 10 U SC TID. We monitored blood glucose ACHS. History of Hyperlipidemia was treated with Rosuvastatin 5mg PO HS. Upon discharge: Patient was accepted for [facility]. Patient cleared for discharge per Dr. Tripp and Dr. Blackman. Please note this is a summary of events. For more details please see complete medical record. Discharge Exam - Head Exam Head Exam: ATRAUMATIC, NORMAL INSPECTION, NORMOCEPHALIC - Additional Findings Additional findings: - Constitutional Appears: Non-toxic, No Acute Distress - Head Exam Head Exam: NORMAL INSPECTION - Eye Exam Eye Exam: EOMI, Normal appearance - ENT Exam ENT Exam: Mucous Membranes Moist - Respiratory Exam Respiratory Exam: Clear to Ausculation Bilateral, NORMAL BREATHING PATTERN. absent: Accessory Muscle Use, Rales, Rhonchi, Wheezes, Respiratory Distress - Cardiovascular Exam Cardiovascular Exam: Tachycardia, +S1, +S2, Murmur (JOANNE). - GI/Abdominal Exam GI & Abdominal Exam: Distended, Soft, Normal Bowel Sounds. absent: Guarding, Tenderness - Extremities Exam Extremities Exam: Normal Inspection. absent: Calf Tenderness, Pedal Edema Additional comments: bandage over incision of left hip c/d/i - Neurological Exam Neurological Exam: Alert, Awake, Oriented x3 - Psychiatric Exam Psychiatric exam: Normal Affect, Normal Mood - Skin Skin Exam: Dry, Intact, Normal Color, Warm Discharge Plan - Follow Up Plan Condition: GOOD Disposition: REHAB FACILITY/REHAB UNIT Additional Instructions: Please resume all home medications. Please follow up with Dr. Blackman for post op care . Referrals: Alejandro Blackman III, MD [Staff Provider] -
--- NOTE | 2017-02-09 16:49 | CARD ---
APPROVED REPORT EKG Measurement Heart [id number] [place] 150P50 [id number] <Conclusion> Sinus tachycardia Nonspecific T wave abnormality Abnormal ECG
[2017-02-09] MEDS ORDERED: Bisacodyl 5mg EC Tab PO ONE (22:21)
[2017-02-09] MEDS: (Lantus) Insulin Glargine, Recombinant SC SCH (23:27)
--- NOTE | 2017-02-09 23:49 | CARD ---
APPROVED REPORT EKG Measurement Heart [id number] [place] 146P46 [id number] <Conclusion> Sinus tachycardia Nonspecific T wave abnormality Abnormal ECG
[2017-02-10] MEDS ORDERED: Bisacodyl 5mg EC Tab PO ONE (00:17)
[2017-02-10] MEDS: HYDROmorphone 1 mg/ml ISec IVP PRN ×2 (00:29→09:57)
[2017-02-10 01:32] VITALS: O2SAT 98
[2017-02-10 07:46] LABS: BASO % 0.6 % (0.0-2.0); EOS # 0.2 K/uL (0.0-0.7); EOS % 2.6 % (0.0-4.0); HEMATOCRIT 26.7 % (35.0-51.0); LYMPH # 1.2 K/uL (1.0-4.3); LYMPH % 15.7 % (20.0-40.0); MEAN CELL VOLUME 80.9 fL (80.0-94.0); MEAN CORPUSCULAR HEMOGLOBIN 27.2 pg (27.0-31.0); MEAN CORPUSCULAR HGB CONC 33.6 g/dL (33.0-37.0); MEAN PLATELET VOLUME 8.3 fL (7.2-11.7); MONO % 12.6 % (0.0-10.0); NRBC % 0.1 % (0.0-2.0); RED CELL DISTRIBUTION WIDTH 14.8 % (11.5-14.5); WHITE BLOOD COUNT 7.6 K/uL (4.8-10.8)
[2017-02-10 07:56] VITALS: PULSE 105; TEMP 98.2
[2017-02-10 08:39] LABS: CHLORIDE 91 mmol/L (98-107)
[2017-02-10 08:40] LABS: POTASSIUM 3.5 mmol/L (3.6-5.2); SODIUM 128 mmol/L (132-148)
[2017-02-10 08:43] LABS: ALB/GLOB RATIO 1.2 (1.0-2.1); ALKALINE PHOSPHATASE 65 U/L (38-126); ALT/SGPT 36 U/L (21-72); AST/SGOT 32 U/L (17-59); BILIRUBIN,TOTAL 0.9 mg/dL (0.2-1.3); BLOOD UREA NITROGEN 10 mg/dL (9-20); CALCIUM 7.9 mg/dl (8.6-10.4); CARBON DIOXIDE 29 mmol/L (22-30); GFR AFRICAN-AMERICAN > 60; GLUCOSE,RANDOM 160 mg/dL (75-110); MAGNESIUM 2.2 mg/dL (1.6-2.3); PHOSPHOROUS 3.1 mg/dL (2.5-4.5); TOTAL PROTEIN 6.2 g/dL (6.3-8.3)
[2017-02-10] MEDS ORDERED: Magnesium Hydroxide Susp 30 ml UD PO ONE ×2 (09:12→10:00)
[2017-02-10] MEDS: Metoprolol Succinate 25 mg XL Tab PO SCH (09:47)
[2017-02-10] MEDS: (Novolog Mix 70/30) Insulin Aspart/Insulin Aspar 100 units/ml SC SCH ×2 (09:48→13:08)
[2017-02-10 09:50] VITALS: BP 150/80
--- NOTE | 2017-02-10 10:40 | CARD ---
APPROVED REPORT EKG Measurement Heart [id number] [place] 142P32 [id number] <Conclusion> Sinus tachycardia Nonspecific T wave abnormality Abnormal ECG
--- NOTE | 2017-02-10 23:40 | OP ---
PROCEDURE DATE: 02/05/2017 PREOPERATIVE DIAGNOSIS: Severe osteoarthritis of the left hip. POSTOPERATIVE DIAGNOSIS: Severe osteoarthritis of the left hip with synovitis of the left hip joint. OPERATIVE FINDINGS: As above. OPERATION PERFORMED: 1. Left total hip replacement, anterior approach. 2. Femoral neck osteotomy. 3. Release of iliopsoas tendon. 4. Autograft bone graft to the acetabulum. SURGEON: Alejandro Blackman MD BOTTOM BLEACHER: Brittaney Webb PA-C SECOND BLEACH MACHINE OPERATOR: Dominique Ornelas, certified registered nursing education administrative assistant. TYPE OF ANESTHESIA: Spinal and general anesthesia. ANESTHESIA ADMINISTERED BY: Gabriela Mcnulty CRNA. ANESTHESIOLOGIST: Aj Johnson MD SPECIMENS REMOVED: Femoral head synovium. ESTIMATED BLOOD LOSS: Approximately 600 to 700 mL, inaccurate by nursing explanation. No blood products given. DRAINS USED: No drains. POSTOPERATIVE CONDITION: Fair. OPERATIVE INDICATION: Mckenzie Aguirre is a patient well known to my practice. This is a 61-year-old gentleman who has had a prior total knee replacement and prior total shoulder replacement. The patient after this experienced severe pain and restricted range of motion of the left hip. Pros, cons, risks, and benefits of hip replacement and arthroplasty were discussed. Possibility of mechanical failure, infection, thromboembolic disease, dislocation, nerve injury, leg length inequality and secondary or tertiary surgery were discussed. The possibility of pulmonary complication was discussed. The patient can no longer stand the discomfort and wish the surgery be accomplished. Again, it is important to know that the pros, cons, risks and benefits were discussed at length with the patient. DESCRIPTION OF PROCEDURE: After having obtained informed consent, after having identified side, site and procedure and a critical pause/timeout, after the satisfactory induction of the anesthetic, the patient identified as Mckenzie Aguirre in the supine position with all bony prominences well padded. The patient was placed in the [facility] traction positioner. Left lower extremity was prepped and draped in the usual fashion for lower extremity surgery. I had explained to the patient all the possibilities and the advantage of the anterior approach versus the posterior approach. It should be noted that the patient began the procedure approximately 1-1/4 to 1-1/5 inch short on the involved side. The concept that the leg length equality is not a guarantee was discussed. This having been accomplished, lower extremity was prepped and draped. This having been accomplished, the skin incision was marked superficial to the tensor fascia femoris 2 fingerbreadths posterior to the anterior superior iliac spine, 3 fingerbreadths posterior to the ASIS and 2 fingers distally. The incision was superficial to the tensor fascia femoris muscle. The skin incision was approximately 4.5 to 5 inches. The skin incision was carried down to the skin and subcutaneous tissue. The fascia was identified and it was divided using the electrocautery. The tensor fascia femoris muscle was a digastric muscle and it is taken down from the investing fascia. The Medacta retractor was placed. At this point in time, the fat pad was identified at the origin of the reflected head of rectus femoris. The rectus femoris head was released. The fascia below the rectus femoris was developed and the retractor was placed deeper. At this point in time, the fascia was divided. The lateral femoral circumflex muscles were identified and controlled with the Aquamantys and both with suture ligature and division. This having been accomplished, a triangular capsulotomy with the left lower extremity and external rotation is initiated at the of the acetabulum. An incision was described this far laterally superficial and distal to the acetabulum in a triangular fashion goes distally to the area of the lesser tuberosity. This carried back laterally and the capsular flap was tagged. This having been accomplished, the trochanteric tubercle was identified and the flap was elevated. The trochanter was mildly skeletonized through this portion of the procedure. At this point in time, the fluoroscope was positioned and video images were generated and therapeutic decisions were made therefrom. The femoral neck osteotomy was accomplished and was divided. Verification of position was offered on image intensification views. The lower extremity was externally rotated. The femoral neck was identified and the T-handle was placed. The femoral neck was removed from the acetabulum. The Ray-Annette sponge had been placed posteriorly to control hemostasis. Hemostasis was controlled. The patient is very healthy and vascular and there was significant amount of bleeding at this point. Bleeding was controlled with the Aquamantys. This having been accomplished, the femoral head was found to be 50 mm. Sequential reaming was carried after 58 mm. Trialing was accomplished and verification of position was offered on image intensification views. The appropriate cup position was approximately 45 degrees of abduction and 20 degrees of anteversion. This having been accomplished, reaming having commenced, autograft bone graft was denuded from the reaming and was saved at this point. The 50-mm cup was introduced after sequential reaming had been accomplished and the position was found to be excellent. At this point in time, using the bone hook, the femur was identified and found to be agata. With external rotation to approximately 120 degrees, the pubofemoral ligament was identified. The pubofemoral ligament was released to the point of the iliopsoas tendon. At this point in time, with external rotation, the ischial femoral ligament was released and the area of the chondroitin tendon and piriformis fossa. This was released and at this point in the time, the iliofemoral ligament was released. The femoris delivered by flexion and adduction with external rotation to approximately 125 to 130 degrees. The bridge of bone between the neck and trochanter was removed. The rat tail rasp was introduced. Reaming was carried to a #4 femoral component, broaching to a #4 femoral component and the hip was reduced and found to be stable in all planes with a dual mobility construct with the neutral out of bearing. This having been accomplished, verification of position was offered on AP and lateral image intensification views. It should be noted at this point that the iliopsoas tendon had been released and also the autograft bone grafting to the acetabulum had been accomplished. This having been accomplished, the position on x-ray was noted and found to be acceptable. The wound was thoroughly irrigated. It should be noted that prior to reduction and traction, FloSeal hemostatic agent was employed as well as thrombin and Gelfoam. Closure was in layers with 0 Quill followed by 2-0 Quill. Vicryl, yogesh to skin and compressing dressings were applied. Verification of position was offered on postoperative image intensification views. Alejandro Blackman MD
--- NOTE | 2017-02-12 19:31 | OP ---
PROCEDURE DATE: 02/05/2017 TIME OF SURGERY: 1843 hours. 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 OPERATION PERFORMED: 1. Anterior approach left total hip replacement. 2. Femoral neck osteotomy. 3. Release of iliopsoas tendon. 4. Autograft bone graft to the acetabulum. SPECIMENS REMOVED: Femoral head. BLOOD LOSS: Approximately 700 mL BLOOD PRODUCTS: None. DRAINS: No drains. POSTOPERATIVE CONDITION: Stable. SURGEON: Alejandro Blackman MD MACHINE DESIGN ENGINEER: Brittaney Webb PA-C SECOND DECISION SUPPORT ANALYST: Dominique Ornelas, certified registered nursing paraprofessional education assistant. OPERATIVE INDICATION: Young Aguirre is a 61-year-old gentleman well known to my practice. The patient has undergone prior total knee replacement and prior total shoulder replacement arthroplasty. The patient has severe osteoarthritic change. Pros, cons, risks, and benefits of hip replacement arthroplasty were discussed with possibility of mechanical failure, infection, thromboembolic disease secondary to tertiary surgery are discussed. The patient can no longer withstand the discomfort and wished the surgery to be accomplished. DESCRIPTION OF PROCEDURE: Informed consent was obtained in the office and again in the holding area at [facility]. After having obtained informed consent, after having identified side, site, and procedure and a critical pause/time-out after the satisfactory induction of the anesthetic, the patient identified as Young Aguirre was placed in the [facility] lower extremity traction positioner. Under the surgeon's direction, the fluoroscope was positioned, video images were generated and therapeutic decisions were made therefrom especially virtual intraoperative decisions. The patient began the procedure with short left lower extremity by approximately 1/2 inch, attempt will be made to make that up. This having been accomplished, lower extremity was prepped and free draped in usual fashion for lower extremity hip surgery. The right pelvis is identified as well with preoperative x-rays and fluoroscopy. Incision is described after sterilely prepping and draping three fingerbreadths posterior to the ASIS and one fingerbreadth distal. The skin incision was carried down through the skin and subcutaneous tissue. The fascia is identified superficial in the tensor fascia femoris and the tensor fascia femoris, which is a digastric muscle was taken down using the electrocautery. The Medacta retractor was placed. The posterior margin of the rectus femoris was identified and the Medacta retractor was placed deeper. The fascia was identified and at this point in time taking great care using electrocautery, the lateral circumflex vessels were especially the anterior branch of the lateral femoral circumflex vessels were identified and both cauterized with the Aquamantys and ligated with suture ligature. This having been accomplished, the capsulotomy was accomplished first with the hip in external rotation, capsulotomy having been accomplished extending to the lesser trochanter, it was elevated and it was tacked. There was found to be a great deal of contracture in this very heavily muscled 61-year-old gentleman. It should be noted that the fascia below the rectus femoris muscle was developed. The tensor fascia femoris is released as is the reflected head of rectus femoris. This having been accomplished, the Medacta retractors were placed and the femoral neck osteotomy was accomplished approximately 1 cm above the lesser trochanter. With the traction and external rotation using the osteotome, the femoral head was removed from the acetabulum. At this point in time, the acetabulum was exposed. The deep Charnley retractor was placed. Hemostasis was controlled with the Aquamantys. The pulvinar was removed. At this point in time, the head measures 50 mm. Reaming is accomplished with 58 mm and reaming commences. The reamings were from articular cartilage for later bone grafting. This having been accomplished, trialing is accomplished, rotation of position was found to be acceptable at approximately 45 degrees and 40 degrees of anteversion. This having been accomplished, the definitive cup was impacted after autograft bone grafting is accomplished. At this point in time, now the traction in external rotation, the bump was placed to deliver the femur and the pubofemoral ligament is identified and released. A portion of iliopsoas tendon is released as well because of the severe contractures. The ischial femoral ligament is released as is the iliofemoral ligament. The proximal femur was mobilized at this point in time with the Miladis retractors both medially at the point of the trochanter using a bur, the bridge of bone between the neck of the trochanter is removed. The Rat Tooth Rasp was used to find the canal. At this point in time, sequential broaching was carried out to a #4 with a neutral head and the trialing is reduced, the hip was reduced and found to be stable in all points. It should be noted that the ischial femoral ligament again is released further in the area of the conjoint tendon in the piriformis fossa. This having been released, the trochanteric flip was accomplished, the position of the cup was found to be acceptable and at this point, the femur was again exposed, the trial was removed and the 4 stem was introduced with a neutral head and neutral neck. This having been accomplished, the femoral component having been impacted and found to be an acceptable position, the ceramic head was impacted into the outer bearing of the dual mobility system. The hip was reduced and found be stable in all planes. The wound was thoroughly irrigated. Autograft bone grafting having been accomplished to the acetabulum, iliopsoas tendon having been released. The wound was thoroughly irrigated with Irrisept. Closures in layers with 0-Quill for the fascia, 0-Quill for the subcutaneous tissues, and yogesh for skin. Compression dressing was applied. Verification of position is offered on AP image intensification views and they were confirmed in recovery with the definitive postoperative x-rays. The leg is lengthened a bit to make up for the leg-length inequality. Neurocirculatory status is intact in recovery. Alejandro Blackman MD
== END 2017-02-10 14:31 | DRG 818 ==
LOC: C.9S 02-05 10:14 → C.6T 02-05 22:38
PROVIDERS: ADMIT Family Medicine; ATTEND Family Medicine
PROC: 0LNK0ZZ Release Left Hip Tendon, Open Approach (ICD-10-PCS; 2017-02-05)
PROC: 0QU707Z Supplement Left Upper Femur with Autologous Tissue Substitute, Open Approach (ICD-10-PCS; 2017-02-05)
PROC: 0SRB04Z Replacement of Left Hip Joint with Ceramic on Polyethylene Synthetic Substitute, Open Approach (ICD-10-PCS; principal; 2017-02-05 12:00)
PROC: 30233N1 Transfusion of Nonautologous Red Blood Cells into Peripheral Vein, Percutaneous Approach (ICD-10-PCS; 2017-02-06)
DX: M16.12 Unilateral primary osteoarthritis, left hip (principal); E87.1 Hypo-osmolality and hyponatremia; I10 Essential (primary) hypertension; D62 Acute posthemorrhagic anemia; J98.11 Atelectasis; W19.XXXA Unspecified fall, initial encounter; M24.552 Contracture, left hip; M65.9 Synovitis and tenosynovitis, unspecified; E11.9 Type 2 diabetes mellitus without complications; E78.00 Pure hypercholesterolemia, unspecified; E78.5 Hyperlipidemia, unspecified; Z96.611 Presence of right artificial shoulder joint; Z96.641 Presence of right artificial hip joint; Z96.651 Presence of right artificial knee joint; Z79.4 Long term (current) use of insulin; Z87.891 Personal history of nicotine dependence